=== PATIENT | female | born 1940 ===

== ENCOUNTER → 2019-12-17 14:23 | Outpatient (BNVA) | payer MEDICARE, SELFPAY | PROVIDERS: PCP Internal Medicine Geriatric Medicine; Visit Provider Surgery Vascular Surgery | DX: I83.12 Varicose veins of left lower extremity with inflammation (principal) | CPT/HCPCS: 99203 ==

== ENCOUNTER 2019-12-31 12:35 | Outpatient (REF) | payer MEDICARE, SELFPAY ==
--- NOTE | 2019-12-31 12:36 | US_ITS ---
EXAMINATION: RIGHT and LEFT LOWER EXTREMITY VENOUS ULTRASOUND (Reflux Exam) CLINICAL INDICATION: leg pain and varicose veins. COMPARISON: None. TECHNIQUE: Color flow triplex imaging and compression Doppler was performed to evaluate both the deep and the superficial systems bilaterally. To evaluate the superficial system, the examination was performed in the upright position. Color-flow Doppler ultrasound and compression ultrasound were utilized. In addition, maneuvers were utilized to demonstrate reflux. FINDINGS: 1. DEEP VENOUS ULTRASOUND OF THE RIGHT LOWER EXTREMITY: Respiratory variation, normal compression and augmented flow are noted in the right common femoral vein as well as the right popliteal vein and there is no evidence of deep venous thrombosis at these locations. There is no evidence of reflux in the deep system in either the common femoral vein or the popliteal vein. There is no evidence of a Burroughs's cyst. 2. SUPERFICIAL ULTRASOUND WITH DOPPLER OF RIGHT LOWER EXTREMITY: The right great saphenous vein at the saphenofemoral junction measures 12 mm, at the mid thigh 4 mm, wlcpf-yvc-uqto 4 mm, crnib-rem-zqal 4 mm, at mid calf 3 mm and at the ankle measures 3 mm. There is right greater saphenous vein measuring 0.4 seconds in the mid calf. The right small saphenous vein measures 2-3 mm and shows no reflux. 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 There are multiple small varicosities that measure less than 3 mm. 3. DEEP VENOUS ULTRASOUND OF THE LEFT LOWER EXTREMITY: Respiratory variation, normal compression and augmented flow are noted in the left common femoral vein as well as the left popliteal vein and there is no evidence of deep venous thrombosis at these locations. There is no evidence of reflux in the deep system in either the common femoral vein or the popliteal vein. . There is no evidence of a Burroughs's cyst. 4. SUPERFICIAL ULTRASOUND WITH DOPPLER OF LEFT LOWER EXTREMITY: Left great saphenous vein at the saphenofemoral junction measures 7 mm, at the mid thigh to mm, ndkdo-dnx-xtab 2 mm, xvkby-spp-kvln 3 mm, at mid calf 3 mm and at the ankle measures 4 mm. There is no reflux demonstrated in the left great saphenous vein. The left small saphenous vein measures 3-5 mm and shows no reflux. There are perforators in the proximal thigh and below the knee that measure 3 mm and do not demonstrate reflux. US/US venous duplex LE BI IMPRESSION: 1. No evidence of reflux or thrombus in the common femoral veins or popliteal veins bilaterally. 2. Right greater saphenous vein reflux measuring 0.4 seconds in the mid calf. No left greater saphenous vein reflux.
== END 2019-12-31 12:36 | disposition home or self-care (01) ==
LOC: HO.US 12:35
PROVIDERS: PCP Internal Medicine Geriatric Medicine; Visit Provider Surgery Vascular Surgery
DX: I83.12 Varicose veins of left lower extremity with inflammation (principal); I83.893 Varicose veins of bilateral lower extremities with other complications
CPT/HCPCS: 93970

== ENCOUNTER 2020-01-05 10:27 | Emergency (ER) | payer MEDICARE, SELFPAY ==
[2020-01-05 11:04] VITALS: BP 130/70; BP 140/82; PULSE 72; PULSE 82; RESP 16; TEMP 37.2; O2SAT 98; O2SAT 99; BMI 35.4
--- NOTE | 2020-01-05 11:04 | XR_ITS ---
EXAMINATION: XR BILATERAL HIPS WITH AP PELVIS CLINICAL INFORMATION: Pain COMPARISON: None TECHNIQUE: AP view of the pelvis and single views of each hip were obtained. FINDINGS: There is normal alignment without acute fracture or dislocation. There is bilateral hip joint space narrowing with associated hypertrophic changes. The sacroiliac joints and symphysis pubis are intact. Overlying soft tissues are intact. XR/XR hips MIHIR min 3V IMPRESSION: No acute bony abnormality of the pelvis and bilateral hips. Mild to moderate degenerative changes of both hips.
[2020-01-05] MEDS: oxyCODONE HCl Immed Release 5 MG TABLET PO (11:17)
[2020-01-05 11:52] LABS: Basophils Absolute Auto 0.1 X10*3/uL (0.0-0.2); Basophils Percent Auto 0.6 % (0-2); Eosinophils Absolute Auto 0.2 X10*3/uL (0.0-0.4); Eosinophils Percent Auto 1.8 % (0-4); Hematocrit 41.8 % (37-47); Hemoglobin 14.6 g/dl (12.0-16.0); Imm Gran Abs Auto 0.03 X10*3/uL (0.00-0.03); Imm Gran Pct Auto 0.3 % (0.0-0.4); Lymphocytes Absolute Auto 2.8 X10*3/uL (1.2-4.9); Lymphocytes Percent Auto 28.7 % (20-40); MANUAL DIFF FLAG NO; Mean Corpuscular HGB Conc 34.9 g/dl (31.0-35.0); Mean Corpuscular Hemoglobin 30.7 pg (27.0-33.0); Mean Corpuscular Volume 87.8 fL (80-98); Mean Platelet Volume 9.2 fL (9.4-12.3); Monocytes Absolute Auto 0.6 X10*3/uL (0.1-1.2); Monocytes Percent Auto 6.5 % (2-11); Neutrophils Absolute Auto 6.1 X10*3/uL (2.0-8.3); Neutrophils Percent Auto 62.1 % (45-73); Platelet Count 370 X10*3/uL (160-400); Red Blood Count 4.76 X10*6/uL (4.20-5.50); Red Cell Distribution Width 12.7 % (11.0-16.0); White Blood Count 9.9 X10*3/uL (4.8-10.8)
[2020-01-05 12:21] LABS: Anion Gap 15 (12-20); Blood Urea Nitrogen 16 mg/dL (9-16); Carbon Dioxide 22 mmol/L (22-29); Chloride 106 mmol/L (96-108); Creatinine Clr Calc Pharmacy 55.4; Estimated Glomerular Filt Rate > 60; Glucose Random 89 mg/dL (60-115); Potassium 4.2 mmol/l (3.3-5.1); Sodium 139 mmol/L (135-145)
--- NOTE | 2020-01-05 13:02 | ED.BACK ---
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 Patient lives home alone and at the point of unable to ambulate because the severe pain. Related Data Home Medications Medication Instructions Recorded Confirmed atorvastatin 40 mg tablet 40 mg PO DAILY 12/17/19 azithromycin 500 mg tablet See Rx Instructions PO .COMPLEX 12/17/19 diltiazem HCl 360 mg capsule,24 360 mg PO DAILY 12/17/19 hr,extended release famotidine 40 mg tablet 40 mg PO BID 12/17/19 fluticasone propionate 50 1 spray INTRANASAL DAILY 12/17/19 mcg/actuation nasal spray,suspension loratadine 10 mg capsule 10 mg PO DAILY 12/17/19 losartan 100 1 tab PO DAILY 12/17/19 mg-hydrochlorothiazide 25 mg tablet paroxetine HCl 10 mg tablet 10 mg PO DAILY 12/17/19 potassium chloride 20 mEq 20 meq PO DAILY 12/17/19 tablet,extended release roflumilast 250 mcg tablet 250 mcg PO DAILY 12/17/19 Previous Rx's Medication Instructions Recorded albuterol sulfate 90 mcg/actuation 2 puff INHALATION Q6H PRN #6.7 g 12/25/19 aerosol inhaler oxycodone 5 mg PO BID PRN #7 cap 01/05/20 Allergies Allergy/AdvReac Type Severity Reaction Status Date / Time lactose [LACTOSE] Allergy Mild DIARRHEA Unverified 11/07/19 17:33 amoxicillin [Augmentin] Allergy Unknown Verified 09/11/19 00:00 clavulanic acid [Augmentin] Allergy Unknown Verified 09/11/19 00:00 nitrofurantoin [Macrobid] Allergy Unknown Verified 09/11/19 00:00 pravastatin Allergy Unknown Verified 09/11/19 00:00 pollen Allergy Unknown Uncoded 09/11/19 00:00 Review of Systems Review of Systems: All other systems are reviewed and are negative Constitutional: Reports as per HPI and Reports no additional constitutional complaints Eyes: Reports as per HPI and Reports no additional eye complaints Reports system reviewed and no additional complaints, except as documented Cardiovascular: Reports as per HPI and Reports no additional cardiovascular complaints Respiratory: Reports as per HPI and Reports no additional respiratory complaints Gastrointestinal: Reports as per HPI and Reports no additional gastrointestinal complaints Genitourinary: Reports no additional female genitourinary complaints Musculoskeletal: Reports no additional musculoskeletal complaints Skin/Breast: Reports system reviewed and no additional complaints, except as docu Psychiatric: Reports no additional psychiatric complaints Endocrine: Reports no additional endocrine complaints Hematologic/Lymphatic: Reports no additional hematologic/lymphatic complaints Allergic/Immunologic: Reports no additional allergic/immunologic complaints Reports system reviewed and no additional complaints, except as documented and Reports Abnormal speech present [facility] Past Medical History Medical History Chronic obstructive pulmonary disease Renal artery atherosclerosis Venous insufficiency Social History Social History Smoking Status: Never smoker Advance Directives: No Advance Directives Information Provided: No Physical Exam Vital Signs: Vital Signs: Last Vital Signs Temp 99.0 F 01/05/20 11:04 Pulse 82 01/05/20 11:04 Resp 16 01/05/20 11:04 BP 130/70 01/05/20 11:04 Pulse Ox 99 01/05/20 11:04 Body Mass Index 35.4 Vital signs have been reviewed as normal and appeared to be correct. Blood pressure normal. Heart rate normal. Respiration rate normal. Temperature normal. Oxygen saturation normal. Appearance: Alert. Oriented X3. No acute distress. Head: Normal external exam. Normocephalic. Atraumatic. No Doran signs noted. No raccoon eyes noted Eyes: PERRLA. EOMI. Conjunctiva and sclera normal. Eyelids normal. ENT: EAC normal. TM's Normal. Pharynx normal. Uvula midline. Moist mucous membranes. No trismus noted. No drooling noted. No muffled voice noted. Neck: Normal inspection. Neck supple. FROM. No adenopathy. Thyroid Normal. No meningeal signs. No neck mass noted. CVS: Normal heart rate and rhythm. Heart sound normal. No murmurs noted. Pulses normal throughout. Respiratory: No respiratory distress. Painless inspiration. Breath sounds normal. No wheezes/rales/rhonchi noted. Chest nontender. No accessory muscle usage noted or decreased air movement noted. Abdomen: Soft and nontender. Bowel sounds normal in all 4 quadrants. No distention noted. No organomegaly noted. No visible injury noted. Back: No CVA tenderness. Full range of motion noted. Skin: Skin warm and dry. Normal skin color. Normal skin turgor. No rashes/lesions/lacerations noted. Extremities: No lower extremity edema. Extremities exhibit normal range of motion. Extremities nontender. Neuro: Oriented X 3. No motor deficit. No sensory deficit. Reflexes normal. Course Course Course Narrative: This is an 79-year-old female with acute on chronic low back pain, patient presented with severe low back pain, no other neurological deficit, clinical exam is not suggestive for abdominal aneurysm (patient had a CT 1-year-old showed no aneurysmal dilatation of the abdominal aorta), will check labs and plain x-rays, control patient's pain with oxycodone, reassess. MDM - Back Pain/Injury MDM Narrative Medical decision making narrative: Assessment and plan. 79-year-old female presented with acute on chronic low back pain, unremarkable x-ray and blood workup, patient did very well with the 1 gaxiola of 5 mg of oxycodone was able to ambulate with no assistance. Will discharge the patient with few pills of oxycodone for pain control at home and follow-up with PCP. Lab Data Result diagrams: 01/05/20 11:47 01/05/20 11:47 Labs: Lab Results 01/05/20 01/05/20 Range/Units 11:47 11:47 WBC 9.9 (4.8-10.8) X10*3/uL RBC 4.76 (4.20-5.50) X10*6/uL Hgb 14.6 (12.0-16.0) g/dl Hct 41.8 (37-47) % MCV 87.8 (80-98) fL MCH 30.7 (27.0-33.0) pg MCHC 34.9 (31.0-35.0) g/dl RDW 12.7 (11.0-16.0) % Plt Count 370 (160-400) X10*3/uL MPV 9.2 L (9.4-12.3) fL Immature Gran % (Auto) 0.3 (0.0-0.4) % Neut % (Auto) 62.1 (45-73) % Lymph % (Auto) 28.7 (20-40) % Quay % (Auto) 6.5 (2-11) % Eos % (Auto) 1.8 (0-4) % Baso % (Auto) 0.6 (0-2) % Lymph # (Auto) 2.8 (1.2-4.9) X10*3/uL Quay # (Auto) 0.6 (0.1-1.2) X10*3/uL Eos # (Auto) 0.2 (0.0-0.4) X10*3/uL Baso # (Auto) 0.1 (0.0-0.2) X10*3/uL Abs Immat Gran (auto) 0.03 (0.00-0.03) X10*3/uL Absolute Neuts (auto) 6.1 (2.0-8.3) X10*3/uL Absolute Nucleated RBC 0.000 (0.0-0.012) X10*3/uL Nucleated RBC % (auto) 0.0 (0.0-0.2) /100WBC Sodium 139 (135-145) mmol/L Potassium 4.2 (3.3-5.1) mmol/l Chloride 106 (96-108) mmol/L Carbon Dioxide 22 (22-29) mmol/L Anion Gap 15 (12-20) BUN 16 (9-16) mg/dL Creatinine 0.82 (0.5-1.4) mg/dL Estim Creat Clear Calc 55.4 Estimated GFR > 60 Random Glucose 89 (60-115) mg/dL Calcium 9.0 (8.4-10.2) mg/dL Imaging Data Pelvis and bilateral hips x-ray: Radiologist's impression: No acute bony abnormality of the pelvis and bilateral hips. Mild to moderate degenerative changes of both hips. Discharge Plan Discharge Clinical Impression: Lumbar radiculopathy Sciatica Qualifiers: Laterality: bilateral Qualified Code(s): M54.31 - Sciatica, right side Patient Disposition: Home, Self-Care Instructions: Lumbar Radiculopathy (ED) Prescriptions: New oxycodone 5 mg capsule 5 mg PO BID PRN (Reason: pain, severe) Qty: 7 RF: 0 No Action albuterol sulfate [Ventolin HFA] 90 mcg/actuation HFA aerosol inhaler 2 puff inhalation Q6H PRN (Reason: shortness of breath or wheezing) Qty: 6.7 RF: 3
== END 2020-01-05 13:57 | disposition home or self-care (01) ==
PROVIDERS: Emergency Provider Emergency Medicine; PCP Internal Medicine Geriatric Medicine
DX: M54.16 Radiculopathy, lumbar region (principal); M54.42 Lumbago with sciatica, left side; M54.41 Lumbago with sciatica, right side; M25.552 Pain in left hip; M25.551 Pain in right hip; Z79.899 Other long term (current) drug therapy
CPT/HCPCS: 36415; 73522; 80048; 85025; 99283; 99284

== ENCOUNTER → 2020-02-18 15:23 | Outpatient (BNVA) | payer MEDICARE, SELFPAY | PROVIDERS: PCP Internal Medicine Geriatric Medicine; Referring Provider Internal Medicine Geriatric Medicine; Visit Provider Surgery Vascular Surgery | DX: I83.12 Varicose veins of left lower extremity with inflammation (principal) | CPT/HCPCS: 99212 ==

== ENCOUNTER → 2020-02-27 12:32 | Outpatient (BNVA) | payer MEDICARE, SELFPAY | PROVIDERS: PCP Internal Medicine Geriatric Medicine; Referring Provider Internal Medicine Geriatric Medicine; Visit Provider Hospitalist | DX: J47.9 Bronchiectasis, uncomplicated (principal); J30.9 Allergic rhinitis, unspecified; J44.9 Chronic obstructive pulmonary disease, unspecified | CPT/HCPCS: 99212 ==

== ENCOUNTER 2020-03-10 11:41 | Outpatient (REF) | payer MEDICARE, SELFPAY | END 2020-03-10 11:42 | disposition home or self-care (01) | LOC: HO.LAB 11:41 | PROVIDERS: Visit Provider Internal Medicine | DX: Z20.822 Contact with and (suspected) exposure to COVID-19 (principal) | CPT/HCPCS: 36415; C9803; U0003 ==

== ENCOUNTER → 2020-06-18 12:53 | Outpatient (BNVA) | payer MEDICARE, SELFPAY | PROVIDERS: PCP Internal Medicine Geriatric Medicine; Visit Provider Hospitalist | DX: J30.9 Allergic rhinitis, unspecified (principal); J44.9 Chronic obstructive pulmonary disease, unspecified; J47.9 Bronchiectasis, uncomplicated; J45.40 Moderate persistent asthma, uncomplicated | CPT/HCPCS: 99212 ==

== ENCOUNTER 2020-06-29 14:46 | Outpatient (REF) | payer MEDICARE, SELFPAY ==
[2020-06-29 15:42] LABS: Anion Gap 16 (12-20); Blood Urea Nitrogen 8 mg/dL (9-16); Carbon Dioxide 23 mmol/L (22-29); Chloride 107 mmol/L (96-108); Estimated Glomerular Filt Rate > 60; Glucose Random 97 mg/dL (60-115); Potassium 3.8 mmol/L (3.3-5.1); Sodium 142 mmol/L (135-145)
[2020-06-29 15:48] LABS: Basophils Absolute Auto 0.1 X10*3/uL (0.0-0.2); Basophils Percent Auto 0.5 % (0-2); Eosinophils Absolute Auto 0.6 X10*3/uL (0.0-0.4); Eosinophils Percent Auto 5.3 % (0-4); Hematocrit 39.4 % (37-47); Hemoglobin 13.6 g/dl (12.0-16.0); Imm Gran Abs Auto 0.03 X10*3/uL (0.00-0.03); Imm Gran Pct Auto 0.3 % (0.0-0.4); Lymphocytes Absolute Auto 4.4 X10*3/uL (1.2-4.9); Lymphocytes Percent Auto 37.5 % (20-40); MANUAL DIFF FLAG SCAN; Mean Corpuscular HGB Conc 34.5 g/dl (31.0-35.0); Mean Corpuscular Hemoglobin 30.1 pg (27.0-33.0); Mean Corpuscular Volume 87.2 fL (80-98); Monocytes Absolute Auto 0.6 X10*3/uL (0.1-1.2); Neutrophils Percent Auto 51.4 % (45-73); PLT CLUMP 1; Red Blood Count 4.52 X10*6/uL (4.20-5.50); Red Cell Distribution Width 13.4 % (11.0-16.0); SCAN SMEAR FLAG 1; White Blood Count 11.7 X10*3/uL (4.8-10.8)
[2020-06-29 15:51] LABS: B Type Natriuretic Peptide 49 pg/mL (<100)
[2020-06-29 16:09] LABS: Platelet Count 263 X10*3/uL (160-400)
[2020-06-29 16:10] LABS: SLIDE REVIEW VERIFIED
[2020-06-29 16:37] LABS: Erythrocyte Sedimentation Rate 25 MM/HR (0-20)
[2020-06-30 08:24] LABS: SARS COV2 IgG Negative (Negative)
== END 2020-06-29 14:47 | disposition home or self-care (01) ==
LOC: HO.RESP 14:46
PROVIDERS: PCP Internal Medicine Geriatric Medicine; Visit Provider Hospitalist
DX: J45.901 Unspecified asthma with (acute) exacerbation (principal)
CPT/HCPCS: 36415; 80048; 83880; 85025; 85652; 86769; 96372; 99212; J2930

== ENCOUNTER 2020-10-14 09:08 | Emergency (ER) | payer MEDICARE, SELFPAY ==
--- NOTE | ~2020-10-14 | XR_ITS ---
EXAMINATION: LUMBAR SPINE AND SACRUM/COCCYX X-RAYS CLINICAL INFORMATION: Pain post fall COMPARISON: CT of the lumbar spine September 2017 TECHNIQUE: 3 views of the lumbar spine and 3 views of the sacrum and coccyx FINDINGS: Lumbar spine: There is curvature of the lumbar spine to the right. Bone alignment is otherwise normal. There is degenerative disc disease and spondylosis at L1-L2 3 and L3-L4. There is lower lumbar spine facet arthritis. There is evidence of atherosclerotic disease. Sacrum and coccyx: There is a lucency in the right S2 vertebral body questionable for a fracture. No other fracture or dislocation is seen. There are degenerative changes at the sacroiliac joints and hip joints. XR/XR sacrum coccyx min 2V IMPRESSION: Lumbar spine: No fracture or dislocation. Scoliosis and degenerative changes. Sacrum and coccyx: Question fracture of the right S2 vertebral body.
--- NOTE | ~2020-10-14 | XR_ITS ---
EXAMINATION: LUMBAR SPINE AND SACRUM/COCCYX X-RAYS CLINICAL INFORMATION: Pain post fall COMPARISON: CT of the lumbar spine September 2017 TECHNIQUE: 3 views of the lumbar spine and 3 views of the sacrum and coccyx FINDINGS: Lumbar spine: There is curvature of the lumbar spine to the right. Bone alignment is otherwise normal. There is degenerative disc disease and spondylosis at L1-L2 3 and L3-L4. There is lower lumbar spine facet arthritis. There is evidence of atherosclerotic disease. Sacrum and coccyx: There is a lucency in the right S2 vertebral body questionable for a fracture. No other fracture or dislocation is seen. There are degenerative changes at the sacroiliac joints and hip joints. XR/XR lumbar spine 2-3V IMPRESSION: Lumbar spine: No fracture or dislocation. Scoliosis and degenerative changes. Sacrum and coccyx: Question fracture of the right S2 vertebral body.
[2020-10-14 09:06] VITALS: BP 170/72
[2020-10-14 09:09] VITALS: BP 172/85; PULSE 85; RESP 18; TEMP 36.9; O2SAT 94
[2020-10-14 09:12] VITALS: BP 172/85; PULSE 89; RESP 18; TEMP 37.2; O2SAT 98; BMI 37.4
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
[2020-10-14] MEDS: oxyCODONE HCl Immed Release 5 MG TABLET PO ×2 (09:30→11:20)
[2020-10-14 11:22] VITALS: BP 174/72; PULSE 82; RESP 16; O2SAT 98
[2020-10-14] MEDS: Ondansetron ODT 4 MG TAB.RAPDIS TRANSLINGU ×2 (11:55→12:46)
== END 2020-10-14 12:47 | disposition home or self-care (01) ==
PROVIDERS: Emergency Provider Emergency Medicine
DX: S32.10XA Unspecified fracture of sacrum, initial encounter for closed fracture (principal); M54.5 Low back pain; W01.0XXA Fall on same level from slipping, tripping and stumbling without subsequent striking against object, initial encounter; Y93.9 Activity, unspecified; Y92.9 Unspecified place or not applicable; Y99.9 Unspecified external cause status; Z79.899 Other long term (current) drug therapy
CPT/HCPCS: 72100; 72220; 99283; 99284

== ENCOUNTER → 2020-11-19 12:58 | Outpatient (BNVA) | payer MEDICARE, SELFPAY | PROVIDERS: PCP Internal Medicine Geriatric Medicine; Visit Provider Hospitalist | DX: J44.9 Chronic obstructive pulmonary disease, unspecified (principal); J30.9 Allergic rhinitis, unspecified; J47.9 Bronchiectasis, uncomplicated | CPT/HCPCS: 99212 ==

== ENCOUNTER 2021-04-13 13:49 | Outpatient (REF) | payer MEDICARE, SELFPAY ==
--- NOTE | ~2021-04-13 | XR_ITS ---
EXAMINATION: XR CHEST CLINICAL INFORMATION: R07.9 - Chest pain, unspecified COMPARISON: Chest radiographs 12/09/2018, 11/05/2018 CTA chest 12/09/2018 TECHNIQUE: 2 views of the chest were obtained. FINDINGS: There is trace subsegmental atelectasis left lateral base. Old linear scarring is again seen left lingular similar to prior studies. There is no pneumothorax, airspace consolidation, or effusion. The heart is normal in size. The vascularity is normal. The hilar and mediastinal contours and visualized bony structures are unremarkable. XR/XR chest 2V IMPRESSION: 1. Subsegmental atelectasis left lateral base. Fine linear scar left lingula. 2. No pneumothorax, vascular congestion, infiltrate, or effusion.
[2021-04-13 14:49] LABS: MANUAL DIFF FLAG NO
[2021-04-13 14:54] LABS: Basophils Absolute Auto 0.1 X10*3/uL (0.0-0.2); Basophils Percent Auto 0.7 % (0-2); Eosinophils Absolute Auto 0.4 X10*3/uL (0.0-0.4); Eosinophils Percent Auto 3.8 % (0-4); Hematocrit 39.8 % (37.0-47.0); Hemoglobin 13.8 g/dl (12.0-16.0); Imm Gran Abs Auto 0.05 X10*3/uL (0.00-0.03); Imm Gran Pct Auto 0.5 % (0.0-0.4); Lymphocytes Absolute Auto 3.2 X10*3/uL (1.2-4.9); Lymphocytes Percent Auto 32.6 % (20-40); Mean Corpuscular HGB Conc 34.7 g/dl (31.0-35.0); Mean Corpuscular Hemoglobin 30.9 pg (27.0-33.0); Mean Platelet Volume 8.9 fL (9.4-12.3); Monocytes Absolute Auto 0.7 X10*3/uL (0.1-1.2); Monocytes Percent Auto 6.9 % (2-11); Neutrophils Absolute Auto 5.3 x10*3/uL (2.0-8.3); Neutrophils Percent Auto 55.5 % (45-73); Platelet Count 360 X10*3/uL (160-400); Red Blood Count 4.47 X10*6/uL (4.20-5.50); Red Cell Distribution Width 12.9 % (11.0-16.0); White Blood Count 9.7 X10*3/uL (4.8-10.8)
[2021-04-13 15:04] LABS: D Dimer High Sensitivity < 150 NG/ML
[2021-04-13 15:17] LABS: Anion Gap 12 (12-20); Blood Urea Nitrogen 8 mg/dL (9-16); Calcium 9.3 mg/dL (8.4-10.2); Carbon Dioxide 25 mmol/L (22-29); Chloride 109 mmol/L (96-108); Estimated Glomerular Filt Rate > 60; Glucose Random 85 mg/dL (60-115); Potassium 4.1 mmol/L (3.3-5.1); Sodium 142 mmol/L (135-145)
[2021-04-13 15:23] LABS: Troponin-I High Sensitivity 11.7 ng/L (<3.5-17.0)
[2021-04-13 15:25] LABS: COVID-19 Test Negative (Negative)
[2021-04-13 15:35] LABS: Erythrocyte Sedimentation Rate 23 MM/HR (0-20)
== END 2021-04-13 13:50 | disposition home or self-care (01) ==
LOC: HO.XRAY 13:49
PROVIDERS: PCP Internal Medicine Geriatric Medicine; Visit Provider Hospitalist
DX: R07.9 Chest pain, unspecified (principal); J45.41 Moderate persistent asthma with (acute) exacerbation; J30.9 Allergic rhinitis, unspecified; J44.9 Chronic obstructive pulmonary disease, unspecified; Z20.822 Contact with and (suspected) exposure to COVID-19
CPT/HCPCS: 36415; 71046; 80048; 84484; 85025; 85379; 85652; 87635; 99212

== ENCOUNTER → 2021-06-14 14:16 | Outpatient (BNVA) | payer OTHER, SELFPAY | PROVIDERS: PCP Internal Medicine Geriatric Medicine; Visit Provider Hospitalist | DX: J47.9 Bronchiectasis, uncomplicated (principal); J30.9 Allergic rhinitis, unspecified | CPT/HCPCS: 99212 ==

== ENCOUNTER 2021-12-10 18:32 | Emergency (ER) | payer OTHER, SELFPAY ==
--- NOTE | ~2021-12-10 | CT_ITS ---
EXAMINATION: CT HEAD WITHOUT CONTRAST CLINICAL INFORMATION: Dizziness, hypertension, headache COMPARISON: None TECHNIQUE: Contiguous axial imaging was performed from the skull base to vertex without intravenous administration of contrast. This CT examination was performed using dose optimization techniques as appropriate, variously including the following: *Automated exposure control *Adjustment of mA and/or kV according to patient size (this includes techniques or standardized protocols for targeted exams where dose is matched to indication/reason for exam; i.e. extremities or head) *Use of iterative reconstruction technique DLP: 672 mGy-cm FINDINGS: No intra-axial or extra-axial hemorrhage. No acute territorial infarct. Ventricles and sulci appear normal. Preservation of sim-white matter differentiation. No mass, mass effect, or midline shift. No fracture. The mastoid air cells and visualized paranasal sinuses are clear. Hyperostosis frontalis interna. CT/CT head/brain wo IV con IMPRESSION: No acute intracranial pathology.
[2021-12-10 18:41] VITALS: BP 195/68; PULSE 91; RESP 18; TEMP 36.8; O2SAT 98; BMI 29.2
--- NOTE | 2021-12-10 18:44 | ECG_ITS ---
Test Reason : HYPERTENTION Blood Pressure : / mmHG Vent. Rate : 079 BPM Atrial Rate : 079 BPM P-R Int : 218 ms QRS Dur : 136 ms QT Int : 448 ms P-R-T Axes : 070 016 041 degrees QTc Int : 513 ms Sinus rhythm with 1st degree A-V block Right bundle branch block Abnormal ECG When compared with ECG of 09-DEC-2018 21:26, Nonspecific T wave abnormality has replaced inverted T waves in Anterior leads Referred By: Generic ED Physician Electronically Signed By:NEISHA CALLAHAN MD
--- NOTE | 2021-12-10 19:24 | ED_ITS ---
HPI - General Adult General Chief complaint: General Medical Stated complaint: high blood pressure, fever Time Seen by Provider: 12/10/21 19:24 Source: patient Mode of arrival: ambulatory Limitations: no limitations History of Present Illness HPI narrative: 81-year-old female with history of asthma presents to the emergency department complaining of hypertension, headaches, and dizziness for the last few days. P atient states she has been taking her blood pressure medication. Patient states she went to urgent care and her blood pressure was reading to 209/86. Patient reports at Urgent Care they gave her losartan 100 mg. Patient states she has been having headaches and dizziness which are presenting different than her typical headache. Patient states her eyes hurt however she is not experiencing blurry vision. Additionally patient is complaining of shortness of breath. Patient denies chest pain, fevers, chills, blurry vision, nausea, diarrhea. Patient states she does not have a history blood clots and is not on blood thinners. Related Data Home Medications Medication Instructions Recorded Confirmed diltiazem HCl 360 mg capsule,24 360 mg PO DAILY 12/17/19 06/30/20 hr,extended release (Taztia XT) albuterol sulfate 2.5 mg/3 mL mg inhalation Q6H PRN 02/27/20 06/30/20 (0.083 %) solution for nebulization celecoxib 200 mg capsule 200 mg PO DAILY PRN 02/27/20 06/30/20 pantoprazole 20 mg tablet,delayed 20 mg PO DAILY 06/18/20 06/30/20 release ferrous sulfate 325 mg (65 mg 0 mg PO 11/19/20 iron) tablet (FeroSul) nitroglycerin 0.4 % (w/w) rectal SD BEDTIME 06/14/21 ointment (Rectiv) Previous Rx's Medication Instructions Recorded ibuprofen 600 mg tablet 600 mg PO TID PRN pain #14 tabs 10/14/20 albuterol sulfate 2.5 mg/3 mL 2.5 mg (3 mL) inhalation Q4H PRN 03/15/21 (0.083 %) solution for nebulization for wheezing #75 mL albuterol sulfate 90 mcg/actuation 2 puff PO QID PRN for wheezing #18 03/15/21 aerosol inhaler (Ventolin HFA) grams Breo Ellipta 200 mcg-25 mcg/dose 1 ea PO DAILY #60 ea 05/09/22 powder for inhalation (fluticasone furoate-vilanterol) Daliresp 250 mcg tablet 250 mcg PO QPM #28 tabs 06/28/21 (roflumilast) azithromycin 500 mg tablet 500 mg PO 3XW #12 tabs 07/26/21 trazodone 50 mg tablet 50 mg PO BEDTIME #30 tabs 09/22/21 prednisone 20 mg tablet See Rx Instructions PO DAILY 10 11/16/21 days #15 tabs amlodipine 2.5 mg tablet 2.5 mg PO DAILY #30 tabs 12/11/21 Allergies Allergy/AdvReac Type Severity Reaction Status Date / Time amoxicillin [Augmentin] Allergy Severe Rash and Verified 06/14/21 14:42 Hives atorvastatin Allergy Severe Tachycardia Verified 06/14/21 14:42 clavulanic acid [Augmentin] Allergy Severe Rash and Verified 06/14/21 14:42 Hives nitrofurantoin [Macrobid] Allergy Severe Rash and Verified 06/14/21 14:42 Hives pravastatin Allergy Severe Rash and Verified 06/14/21 14:42 Hives lactose [LACTOSE] Allergy Mild DIARRHEA Unverified 06/14/21 14:42 pollen Allergy Mild Rash Uncoded 06/14/21 14:42 Review of Systems Review of Systems: Constitutional : No Weight loss, No Fever, No Chills, No Fatigue, No Malaise ENT/Mouth : No sore throat, No Rhinorrhea Eyes: + Eye Pain, No Swelling, No Redness Cardiovascular : No Chest Pain, + SOB, No Dyspnea on Exertion, No Orthopnea, No Edema, No Palpitations Respiratory : No Cough, No Sputum, No Wheezing Gastrointestinal : No Nausea, No Vomiting, No Diarrhea, No Constipation, No abdominal Pain, No Hematochezia, No Melena Genitourinary : No Dysuria, No Urinary Frequency, No Hematuria, Musculoskeletal : No joint pain, No Myalgias, No Joint Swelling Skin : No Skin Lesions, No rash Neuro : No Weakness, No Numbness, + Dizziness, + Headache Psych : No Anxiety/Panic, No Depression All other systems reviewed and are negative Yes all other systems are reviewed and are negative PMFSH Past Medical History Attestation statement: The following information was validated with the patient. Source: old records reviewed and nursing notes reviewed Medical History Asthma Asthma-COPD overlap syndrome Bronchiectasis Chronic allergic rhinitis Chronic obstructive pulmonary disease Renal artery atherosclerosis Venous insufficiency Social History Social History Alcohol intake: never Patient Tobacco Use Status: Never used Tobacco Advance Directives: No Advance Directives Information Provided: No Physical Exam ED Vital Signs: Vital Signs - 24 hr 12/10/21 18:41 12/10/21 21:27 12/10/21 22:30 Temperature 98.3 F Pulse Rate 91 94 88 Respiratory Rate 18 26 H 25 H Blood Pressure 195/68 H 208/74 H 178/56 H Pulse Oximetry 98 98 97 Oxygen Delivery Method Room Air Room Air Room Air 12/10/21 23:33 12/11/21 00:30 Temperature 98.5 F 98.1 F Pulse Rate 81 77 Respiratory Rate 24 H 22 H Blood Pressure 173/61 H 162/61 H Pulse Oximetry 97 96 Oxygen Delivery Method Room Air Room Air BMI result Body Mass Index 29.2 vss Appearance: Alert.? Oriented X3.? No acute distress.? Head: Normocephalic, atraumatic, no step-offs or deformities Eyes: Pupils equal, round and reactive to light.? ENT: Pharynx normal.??External ears normal, TMs normal bilaterally and EAC's normal. No pain with manipulation of external ears bilaterally. No mastoid tenderness. Neck: Normal inspection.? Neck supple.? CVS: Normal heart rate and rhythm.? Pulses normal.? Respiratory: No respiratory distress.? Breath sounds normal.? Abdomen: Soft and nontender.? Skin: Skin warm and dry.? Normal skin color.? Normal skin turgor.? Extremities: No lower extremity edema.? No calf ttp. 5/5 strength to bilateral upper and lower extremities. Normal hand tile classifier b/l Neuro: Oriented X 3.? No motor deficit.? No sensory deficit. CN 2-12 intact. Ambulating w/ steady gait and normal coordination. Normal finger to nose, heel to funez. Negative pronator drift and romberg NIHSS-0 Course Reevaluation(s) Reevaluation #1: Slight leukocytosis noted , chemistry with no acute electrolyte abnormalities requiring intervention, elevated CRP, ESR within normal limits. Initial troponin 6.7, EKG nonischemic unlikely ACS however will repeat troponin at 11. COVID negative. Even after patient's at-home medication blood pressure remains elevated, will add an additional agent at this time. Head CT with no acute findings, no signs of intracranial hemorrhage, unlikely stroke. Although patient's CRP is elevated I do not suspect temporal arteritis or giant cell arteritis on this patient, no scalp tenderness or pain to palpation overlying temporal arteries, no vision changes. Time: 21:54 Reevaluation #2: Upon re-evaluation patient tells me she is no longer having a headache, dizziness or any discomfort. She tells me she feels good. Pressure still elevated. Will continue to monitor Time: 22:06 Reevaluation #3: Patient's troponin did increase however I did run this case by Cardiology Dr. Swann who tells me EKG and trop ok, he recommends discharging patient home with amlodipine at 2.5 mg daily. Patient appears well, asymptomatic, at this time patient will be discharged home. Patient's blood pressure improved to 173/61, continues to be symptom-free. I did have a long conversation with patient about med compliance in taking her blood pressure medications every day. I advised her to check her blood pressures Monday, Monday, Monday, and follow-up with her primary care provider and discuss these findings. Educated her on worrisome signs and symptoms in outlined them on her discharge. Daughter at bedside will also verbalizes understanding. At this time patient will be discharged home will give her follow-up to Neurology. Comfortable discharge home. At time of discharge patient was able to ambulate out of the department without difficulties. Time: 23:58 Medical Decision Making [facility] Narrative Medical decision making narrative: 1930 81 year old female presents w/ hypertension, headache, dizziness, X2 days. Although patient reported fevers to triage she denies fevers to this PA-C. PE benign. Neuro nonfocal, cerebellar intact, RRR, lungs clear, abd soft non- tender non-distended. VSS. NIHSS- 0 Low suspicion for ICH, stroke, posterior stroke, encephalitis, meningitis. Likley complex migrane. Plan- labs, imaging, urine, ekg, trop Medical Records Medical records reviewed: Yes I reviewed the patient's medical records. Lab Data Lab results reviewed: Yes I reviewed the patient's lab results. Result diagrams: 12/10/21 20:09 12/10/21 20:09 Labs: Lab Results 12/10/21 12/10/21 12/10/21 Range/Units 20:09 20:09 20:09 WBC 11.7 H (4.8-10.8) X10*3/uL RBC 5.15 (4.20-5.50) X10*6/uL Hgb 15.2 (12.0-16.0) g/dl Hct 44.6 (37.0-47.0) % MCV 86.6 (80.0-98.0) fL MCH 29.5 (27.0-33.0) pg MCHC 34.1 (31.0-35.0) g/dl RDW 13.1 (11.0-16.0) % Plt Count 427 H (160-400) X10*3/uL MPV 9.0 L (9.4-12.3) fL Immature Gran % (Auto) 0.3 (0.0-0.4) % Neut % (Auto) 61.8 (45-73) % Lymph % (Auto) 27.4 (20-40) % Posey % (Auto) 6.1 (2-11) % Eos % (Auto) 3.9 (0-4) % Baso % (Auto) 0.5 (0-2) % Lymph # (Auto) 3.2 (1.2-4.9) X10*3/uL Posey # (Auto) 0.7 (0.1-1.2) X10*3/uL Eos # (Auto) 0.5 H (0.0-0.4) X10*3/uL Baso # (Auto) 0.1 (0.0-0.2) X10*3/uL Abs Immat Gran (auto) 0.03 (0.00-0.03) X10*3/uL Absolute Neuts (auto) 7.3 (2.0-8.3) x10*3/uL Absolute Nucleated RBC 0.000 (0.0-0.012) X10*3/uL Nucleated RBC % (auto) 0.0 (0.0-0.2) /100WBC ESR (0-20) MM/HR PT (10.0-13.1) SEC INR (0.9-1.1) Sodium 143 (135-145) mmol/L Potassium 4.1 (3.3-5.1) mmol/L Chloride 107 (96-108) mmol/L Carbon Dioxide 24 (22-29) mmol/L Anion Gap 16 (12-20) BUN 11 (9-16) mg/dL Creatinine 0.77 (0.5-1.4) mg/dL Estim Creat Clear Calc 51.6 Estimated GFR > 60 Random Glucose 95 (60-115) mg/dL Calcium 9.5 (8.4-10.2) mg/dL Total Bilirubin 0.6 (0.0-1.0) mg/dL Direct Bilirubin 0.2 (0.0-0.5) mg/dL AST 16 (5-31) U/L ALT 12 (0-31) U/L Alkaline Phosphatase 128 H (39-117) U/L Troponin I High Sens 6.7 (<3.5-17.0) ng/L C-Reactive Protein (< or = 0.50) mg/dL Total Protein 7.4 (6.5-8.0) g/dL Albumin 4.6 (3.5-5.0) g/dL Lipase 13 (8-78) U/L Urine Color Urine Appearance Urine pH (5.0-9.0) Ur Specific [place] (1.005-1.025) Urine Protein (Neg-Trace) mg/dL Urine Glucose (UA) (Negative) mg/dL Urine Ketones (Negative) mg/dL Urine Blood (Negative) Urine Nitrite (Negative) Ur Leukocyte Esterase (Negative) COVID-19 (SIN) (Negative) COVID-19 Clin Com 12/10/21 12/10/21 12/10/21 Range/Units 20:09 20:09 20:09 WBC (4.8-10.8) X10*3/uL RBC (4.20-5.50) X10*6/uL Hgb (12.0-16.0) g/dl Hct (37.0-47.0) % MCV (80.0-98.0) fL MCH (27.0-33.0) pg MCHC (31.0-35.0) g/dl RDW (11.0-16.0) % Plt Count (160-400) X10*3/uL MPV (9.4-12.3) fL Immature Gran % (Auto) (0.0-0.4) % Neut % (Auto) (45-73) % Lymph % (Auto) (20-40) % Posey % (Auto) (2-11) % Eos % (Auto) (0-4) % Baso % (Auto) (0-2) % Lymph # (Auto) (1.2-4.9) X10*3/uL [place]osey # (Auto) (0.1-1.2) X10*3/uL Eos # (Auto) (0.0-0.4) X10*3/uL Baso # (Auto) (0.0-0.2) X10*3/uL Abs Immat Gran (auto) (0.00-0.03) X10*3/uL Absolute Neuts (auto) (2.0-8.3) x10*3/uL Absolute Nucleated RBC (0.0-0.012) X10*3/uL Nucleated RBC % (auto) (0.0-0.2) /100WBC ESR 18 (0-20) MM/HR PT 12.4 (10.0-13.1) SEC INR 1.1 (0.9-1.1) Sodium (135-145) mmol/L Potassium (3.3-5.1) mmol/L Chloride (96-108) mmol/L Carbon Dioxide (22-29) mmol/L Anion Gap (12-20) BUN (9-16) mg/dL Creatinine (0.5-1.4) mg/dL Estim Creat Clear Calc Estimated GFR Random Glucose (60-115) mg/dL Calcium (8.4-10.2) mg/dL Total Bilirubin (0.0-1.0) mg/dL Direct Bilirubin (0.0-0.5) mg/dL AST (5-31) U/L ALT (0-31) U/L Alkaline Phosphatase (39-117) U/L Troponin I High Sens (<3.5-17.0) ng/L C-Reactive Protein (< or = 0.50) mg/dL Total Protein (6.5-8.0) g/dL Albumin (3.5-5.0) g/dL Lipase (8-78) U/L Urine Color Urine Appearance Urine pH (5.0-9.0) Ur Specific [place] (1.005-1.025) Urine Protein (Neg-Trace) mg/dL Urine Glucose (UA) (Negative) mg/dL Urine Ketones (Negative) mg/dL Urine Blood (Negative) Urine Nitrite (Negative) Ur Leukocyte Esterase (Negative) COVID-19 (SIN) Negative (Negative) COVID-19 Clin Com See Note 12/10/21 12/10/21 12/10/21 Range/Units 20:09 21:39 23:32 WBC (4.8-10.8) X10*3/uL RBC (4.20-5.50) X10*6/uL Hgb (12.0-16.0) g/dl Hct (37.0-47.0) % MCV (80.0-98.0) fL MCH (27.0-33.0) pg MCHC (31.0-35.0) g/dl RDW (11.0-16.0) % Plt Count (160-400) X10*3/uL MPV (9.4-12.3) fL Immature Gran % (Auto) (0.0-0.4) % Neut % (Auto) (45-73) % Lymph % (Auto) (20-40) % Posey % (Auto) (2-11) % Eos % (Auto) (0-4) % Baso % (Auto) (0-2) % Lymph # (Auto) (1.2-4.9) X10*3/uL [place]y # (Auto) (0.1-1.2) X10*3/uL Eos # (Auto) (0.0-0.4) X10*3/uL Baso # (Auto) (0.0-0.2) X10*3/uL Abs Immat Gran (auto) (0.00-0.03) X10*3/uL Absolute Neuts (auto) (2.0-8.3) x10*3/uL Absolute Nucleated RBC (0.0-0.012) X10*3/uL Nucleated RBC % (auto) (0.0-0.2) /100WBC ESR (0-20) MM/HR PT (10.0-13.1) SEC INR (0.9-1.1) Sodium (135-145) mmol/L Potassium (3.3-5.1) mmol/L Chloride (96-108) mmol/L Carbon Dioxide (22-29) mmol/L Anion Gap (12-20) BUN (9-16) mg/dL Creatinine (0.5-1.4) mg/dL Estim Creat Clear Calc Estimated GFR Random Glucose (60-115) mg/dL Calcium (8.4-10.2) mg/dL Total Bilirubin (0.0-1.0) mg/dL Direct Bilirubin (0.0-0.5) mg/dL AST (5-31) U/L ALT (0-31) U/L Alkaline Phosphatase (39-117) U/L Troponin I High Sens 10.4 D (<3.5-17.0) ng/L C-Reactive Protein 1.73 H (< or = 0.50) mg/dL Total Protein (6.5-8.0) g/dL Albumin (3.5-5.0) g/dL Lipase (8-78) U/L Urine Color Yellow Urine Appearance Clear Urine pH 7.5 (5.0-9.0) Ur Specific [place] <= 1.005 (1.005-1.025) Urine Protein Negative (Neg-Trace) mg/dL Urine Glucose (UA) Negative (Negative) mg/dL Urine Ketones Negative (Negative) mg/dL Urine Blood Negative (Negative) Urine Nitrite Negative (Negative) Ur Leukocyte Esterase Negative (Negative) COVID-19 (SIN) (Negative) COVID-19 Clin Com ECG Data Attestation: I personally reviewed and interpreted this ECG as follows: Prior ECG tracings: available for review Interpretation: Ventricular rate of 79, SD normal, QRS normal, QT/QTC normal. EKG with sinus rhythm with first-degree AV block. Also noted to have a right bundle-branch block. When compared to EKG from November 2018 no significant changes. Critical Care Time Critical Care Time Critical Care Time: Yes Total Critical Care Time: 35 Attestation: I attest to this time spent taking care of the patient, obtaining history, physical, reviewing labs, imaging, speaking to my attending, speaking to specialist. Discharge Plan Discharge Clinical Impression: Headache, Dizziness, Hypertension, First degree AV block Patient Disposition: Home, Self-Care Instructions: Acute Headache (ED), Hypertension (ED), Dizziness (ED), Hypertension in the Older Adult (ED) Additional Instructions: Take your medications as prescribed. If you were prescribed antibiotics today, it is important that you take your medication to their entirety, do not skip any doses, do not finish them early. Follow-up with your primary care provider this week. Please follow-up with neurology if headache continues. Please also follow-up with cardiology. Please check your blood pressure Monday, Monday, Monday, write it down and sure these numbers with your primary care provider. Continue to take your prescribed blood pressure medications every day. Return to the emergency department with new or worsening symptoms. Such as fevers, chills, chest pain, shortness of breath, nausea, vomiting, dizziness, headache, vision changes, lethargy In case of emergency call 911 Your laboratory studies here in the emergency department were reassuring. Your head CT scan showed no acute findings. Your cardiac enzymes were also reassuring [place] tootie medicamentos seg?n lo prescrito. Si le recetaron antibi?ticos hoy, es importante que tome nguyen medicamento en nguyen totalidad, no se salte ninguna dosis, no los termine antes de tiempo. Seguimiento con nguyen proveedor de atenci?n primaria esta semana. Por favor, juan un seguimiento con neurolog?a si te da dolor de manolo o emperoa. Juan seguimento con cardiologia. Por favor controle nguyen presi?n arterial los lunes, mi?rcoles y viernes, an?telo y aseg?rese de estos n?meros con nguyen proveedor de atenci?n primaria. Contin?e tomando los medicamentos recetados para la presi?n arterial todos los d?as. Regrese al departamento de emergencias con s?ntomas nuevos o que empeoran. Shelbie fiebre, escalofr?os, dolor de pecho, dificultad para respirar, n?useas, v?mitos, mareos, dolor de manolo, cambios en la visi?n, letargo En iris de emergencia llama al 911 T[place]ie estudios de laboratorio aqu? en el departamento de emergencias fueron t ranquilizadores. Nguyen tomograf?a computarizada de la manolo no mostr? hallazgos agudos. Tus enzimas card?acas tambi?n fueron tranquilizadoras. Prescriptions: New amlodipine 2.5 mg tablet 2.5 mg PO DAILY Qty: 30 1RF No Action albuterol sulfate 2.5 mg /3 mL (0.083 %) solution for nebulization 2.5 mg inhalation Q4H PRN (Reason: for wheezing) Qty: 75 11RF albuterol sulfate [Ventolin HFA] 90 mcg/actuation HFA aerosol inhaler 2 puff PO QID PRN (Reason: for wheezing) Qty: 18 11RF Daliresp 250 mcg tablet 250 mcg PO QPM Qty: 28 8RF Breo Ellipta 200-25 mcg/dose blister with device 1 ea PO DAILY Qty: 60 11RF azithromycin 500 mg tablet 500 mg PO 3XW Qty: 12 5RF trazodone 50 mg tablet 50 mg PO BEDTIME Qty: 30 3RF prednisone 20 mg tablet See Rx Instructions PO DAILY 10 Days Qty: 15 0RF Rx Instructions: PO daily; Take 2 tabs daily x 5 days, then 1 tablet daily x 5 days ibuprofen 600 mg tablet 600 mg PO TID PRN (Reason: pain) Qty: 14 0RF albuterol sulfate 2.5 mg /3 mL (0.083 %) solution for nebulization inhalation Q6H PRN celecoxib 200 mg capsule 200 mg PO DAILY PRN diltiazem HCl [Taztia XT] 360 mg capsule,extended release 24 hr 360 mg PO DAILY pantoprazole 20 mg tablet,delayed release (DR/EC) 20 mg PO DAILY ferrous sulfate [FeroSul] 325 mg (65 mg iron) tablet 0 mg PO Rectiv 0.4 % (w/w) ointment SD BEDTIME Ref[place]: [facility] [place] [facility] [Provider Group] - 1 week [facility] [place]Provider Group] - 1 week Physician,Unknown J [Primary Care Provider] - 2 days
[2021-12-10 20:18] LABS: MANUAL DIFF FLAG NO
[2021-12-10 20:19] LABS: Basophils Absolute Auto 0.1 X10*3/uL (0.0-0.2); Basophils Percent Auto 0.5 % (0-2); Eosinophils Absolute Auto 0.5 X10*3/uL (0.0-0.4); Eosinophils Percent Auto 3.9 % (0-4); Hematocrit 44.6 % (37.0-47.0); Hemoglobin 15.2 g/dl (12.0-16.0); Imm Gran Abs Auto 0.03 X10*3/uL (0.00-0.03); Imm Gran Pct Auto 0.3 % (0.0-0.4); Lymphocytes Absolute Auto 3.2 X10*3/uL (1.2-4.9); Lymphocytes Percent Auto 27.4 % (20-40); Mean Corpuscular HGB Conc 34.1 g/dl (31.0-35.0); Mean Corpuscular Hemoglobin 29.5 pg (27.0-33.0); Mean Corpuscular Volume 86.6 fL (80.0-98.0); Monocytes Absolute Auto 0.7 X10*3/uL (0.1-1.2); Monocytes Percent Auto 6.1 % (2-11); Neutrophils Absolute Auto 7.3 x10*3/uL (2.0-8.3); Neutrophils Percent Auto 61.8 % (45-73); Platelet Count 427 X10*3/uL (160-400); Red Blood Count 5.15 X10*6/uL (4.20-5.50); Red Cell Distribution Width 13.1 % (11.0-16.0); White Blood Count 11.7 X10*3/uL (4.8-10.8)
[2021-12-10 20:27] LABS: INTERNATIONAL NORM RATIO 1.1 (0.9-1.1); Prothrombin Time 12.4 SEC (10.0-13.1)
[2021-12-10] MEDS: Losartan Potassium 50 MG TABLET 100 MG PO (20:30)
[2021-12-10 20:34] LABS: COVID-19 Test Negative (Negative)
[2021-12-10 20:40] LABS: C Reactive Protein 1.73 mg/dL (< or = 0.50)
[2021-12-10 20:42] LABS: Alanine Aminotransferase 12 U/L (0-31); Albumin Level 4.6 g/dL (3.5-5.0); Alkaline Phosphatase 128 U/L (39-117); Anion Gap 16 (12-20); Aspartate Amino Transferase 16 U/L (5-31); Bilirubin Direct 0.2 mg/dL (0.0-0.5); Bilirubin Total 0.6 mg/dL (0.0-1.0); Blood Urea Nitrogen 11 mg/dL (9-16); Calcium 9.5 mg/dL (8.4-10.2); Carbon Dioxide 24 mmol/L (22-29); Chloride 107 mmol/L (96-108); Creatinine Clr Calc Pharmacy 51.6; Estimated Glomerular Filt Rate > 60; Glucose Random 95 mg/dL (60-115); Lipase 13 U/L (8-78); Potassium 4.1 mmol/L (3.3-5.1); Sodium 143 mmol/L (135-145); Total Protein 7.4 g/dL (6.5-8.0)
[2021-12-10 20:46] LABS: Troponin-I High Sensitivity 6.7 ng/L (<3.5-17.0)
--- NOTE | 2021-12-10 21:25 | PC.NURSE ---
Pt. in room with daughter at bedside. Pt. BP continues to remain elevated. Will notify Provider.
[2021-12-10 21:26] LABS: Erythrocyte Sedimentation Rate 18 MM/HR (0-20)
[2021-12-10 21:27] VITALS: BP 208/74; PULSE 94; RESP 26; O2SAT 98
[2021-12-10 21:48] LABS: Appearance Urine Clear; Color Urine Yellow; Glucose Urine UA Negative (Negative); Leukocyte Esterase Urine Negative (Negative); Nitrite Urine Negative (Negative); PH 7.5 (5.0-9.0); Specific Gravity - Urine <= 1.005 (1.005-1.025); Urine Blood Negative (Negative); Urine Ketones Negative (Negative); Urine Protein Negative (Neg-Trace)
[2021-12-10 22:30] VITALS: BP 178/56; PULSE 88; RESP 25; O2SAT 97
[2021-12-10] MEDS: Labetalol HCL 100 MG/20 ML VIAL IVPUSH (22:32)
[2021-12-10 23:33] VITALS: BP 173/61; PULSE 81; RESP 24; TEMP 36.9; O2SAT 97
[2021-12-11 00:16] LABS: Troponin-I High Sensitivity 10.4 ng/L (<3.5-17.0)
[2021-12-11 00:30] VITALS: BP 162/61; PULSE 77; RESP 22; TEMP 36.7; O2SAT 96
[2021-12-11] MEDS: amLODIPine Besylate 2.5 MG TABLET PO (00:47)
== END 2021-12-11 02:13 | disposition home or self-care (01) ==
PROVIDERS: Physician Assistant; Emergency Provider Emergency Medicine
DX: R51.9 Headache, unspecified (principal); R42 Dizziness and giddiness; I10 Essential (primary) hypertension; I44.0 Atrioventricular block, first degree; Z20.822 Contact with and (suspected) exposure to COVID-19; R50.9 Fever, unspecified
CPT/HCPCS: 36415; 70450; 80053; 81003; 82248; 83690; 84484; 85025; 85610; 85652; 86140; 87635; 93005; 96374; 99284

== ENCOUNTER → 2021-12-23 14:16 | Outpatient (BNVA) | payer OTHER, SELFPAY | PROVIDERS: PCP Internal Medicine Geriatric Medicine; Visit Provider Hospitalist | DX: J47.9 Bronchiectasis, uncomplicated (principal); J30.9 Allergic rhinitis, unspecified; R94.31 Abnormal electrocardiogram [ECG] [EKG] | CPT/HCPCS: 99212 ==

== ENCOUNTER 2021-12-30 17:22 | Emergency (ER) | payer OTHER, SELFPAY ==
[2021-12-30 17:45] VITALS: BP 152/78; PULSE 95; O2SAT 97
[2021-12-30 17:50] VITALS: BP 154/76; PULSE 86; RESP 16; TEMP 36.6; O2SAT 98; BMI 28.9
--- NOTE | 2021-12-30 19:33 | ED.BACK ---
HPI - Back Pain/Injury General Chief Complaint: Back Pain/Injury Stated Complaint: rt flank pain Time Seen by Provider: 12/30/21 17:41 Source: patient, family and paraprofessional interpreter History of Present Illness HPI Narrative: 81-year-old female who presents with complaints of right lower back discomfort which she states she has had before and states that the pain radiates down the posterior aspect of her right lower extremity making it difficult to walk but denies any fever, chills, GI or symptoms and denies any bowel or bladder difficulties or numbness in the groin area. Related Data Allergies Allergy/AdvReac Type Severity Reaction Status Date / Time No Known Allergies Allergy Verified 12/30/21 17:53 Review of Systems Review of Systems: Pertinent positives and negatives as stated in HPI 10 point review of systems is otherwise negative. PMFSH Past Medical History Source: nursing notes reviewed Social History Social History Advance Directives: Yes Advance Directives on File: Yes Advance Directives Date on File: 12/30/21 Physical Exam Vital Signs: Vital Signs: Last Vital Signs Temp 97.8 F 12/30/21 17:50 Pulse 86 12/30/21 17:50 Resp 16 12/30/21 17:50 BP 154/76 H 12/30/21 17:50 Pulse Ox 98 12/30/21 17:50 O2 Del Method 12/30/21 17:50 BMI result Body Mass Index 28.9 VITAL SIGNS: Reviewed. GENERAL: Well developed, well nourished, in no acute distress. HEAD: Normocephalic/atraumatic EYES: PERRLA, EOMI EARS: Ext canals without abnormality OROPHARYNX: no oral lesions noted, posterior pharynx clear LUNGS: Normal breath sounds. No adventitious sounds or accessory muscle use. SpO2<98> CARDIOVASCULAR: Regular rate and rhythm without noted murmurs, no JVD or lower extremity edema. ABDOMEN: Soft, non-tender, non-distended with bowel sounds. BACK: There is no midline vertebral tenderness, however there is tenderness over the right lower back, specifically the SI and no noted strength deficits when checked symmetrically. MUSCULOSKELETAL: No tenderness, deformities, or effusions noted on gross inspection. EXTREMITIES: No cyanosis, clubbing or edema. SKIN: Inspection of the skin reveals no rashes NEUROLOGIC: Alert and oriented x 4. Strength and sensation to light touch were grossly intact x 4. Course Course Course Narrative: 81-year-old female with history and clinical presentation consistent with sciatica and no evidence to suggest cauda equina, UTI, or focal deficits. Patient was treated with combination analgesics as well as a lidocaine patch and on re-evaluation is noted to have complete resolution of her discomfort and is able to ambulate without difficulty. She is otherwise discharged home in stable condition with continued treatment. Medications Administered Discontinued Medications Generic Name Dose Route Start Last Admin Trade Name Freq PRN Reason Stop Dose Admin Acetaminophen 975 mg 12/30/21 19:31 12/30/21 19:53 Acetaminophen 325 Mg Tablet PO 12/30/21 19:32 975 mg ONCE ONE Administration Ketorolac Tromethamine 15 mg 12/30/21 19:31 12/30/21 19:50 Ketorolac Tromethamine 15 Mg/Ml Vial IM 12/30/21 19:32 15 mg ONCE ONE Administration Lidocaine 1 patch 12/30/21 19:31 12/30/21 19:53 Lidocaine 4 % Patch Adh..Patch TRANSDERMA 12/30/21 19:32 1 patch ONCE ONE Administration Protocol Discharge Plan Discharge Clinical Impression: Lumbar radiculopathy, Sciatica Patient Disposition: Home, Self-Care Instructions: Lower Back Exercises (ED), Lumbar Radiculopathy (ED), Sciatica (ED) Additional Instructions: 1. Reanudar todos los medicamentos caseros seg?n lo prescrito. 2. Tylenol 1000 mg, por v?a oral, cada 6 horas seg?n sea necesario para controlar el dolor. No exceda los 4000 mg dentro de las 24 horas. 3. Ibuprofeno 400 mg, por v?a oral con leche o comida, cada 6 horas seg?n sea necesario para controlar el dolor. Puede kevyn avery medicamento con Tylenol para mejorar el alivio de los s?ntomas. 4. Parche de lidoca?na, aplique en el ?juli de m?xima sensibilidad romi se indica en el empaque exterior. 5. Juan un seguimiento con landeros proveedor de atenci?n primaria llamando a la oficina por la ma?amrik y discutiendo brenda posible derivaci?n a fisioterapia. Regrese a la kevyn de emergencias si los s?ntomas empeoran. Referrals: Name,MD Rohit [Primary Care Provider] - Print Language: Guamanian
[2021-12-30] MEDS: Ketorolac Tromethamine 15 MG/ML VIAL IM (19:50)
[2021-12-30] MEDS: Acetaminophen 325 MG TABLET 975 MG PO (19:53)
[2021-12-30] MEDS: Lidocaine 4 % Patch ADH..PATCH 1 PATCH TRANSDERMA (19:53)
== END 2021-12-30 22:26 | disposition home or self-care (01) ==
PROVIDERS: Emergency Provider Student in an Organized Health Care Education/Training Program; PCP Internal Medicine Geriatric Medicine
DX: M54.16 Radiculopathy, lumbar region (principal); M54.41 Lumbago with sciatica, right side
CPT/HCPCS: 96372; 99283; 99284; J1885

== ENCOUNTER 2022-02-07 14:08 | Outpatient (REF) | payer OTHER, SELFPAY | END 2022-02-07 14:09 | disposition home or self-care (01) | LOC: HO.XRAY 14:08 | PROVIDERS: PCP Internal Medicine Geriatric Medicine; Visit Provider Hospitalist | DX: J47.9 Bronchiectasis, uncomplicated (principal) | CPT/HCPCS: 71046 ==

== ENCOUNTER → 2022-03-07 13:45 | Outpatient (BNVA) | payer OTHER, SELFPAY | PROVIDERS: PCP Internal Medicine Geriatric Medicine; Referring Provider Internal Medicine Geriatric Medicine; Visit Provider Internal Medicine Cardiovascular Disease | DX: R06.02 Shortness of breath (principal) | CPT/HCPCS: 99202 ==

== ENCOUNTER → 2022-04-25 14:43 | Outpatient (BNVA) | payer OTHER, SELFPAY | PROVIDERS: PCP Internal Medicine Geriatric Medicine; Visit Provider Hospitalist | DX: J47.9 Bronchiectasis, uncomplicated (principal); J30.9 Allergic rhinitis, unspecified; Z79.899 Other long term (current) drug therapy | CPT/HCPCS: 99212 ==

== ENCOUNTER → 2022-06-09 11:05 | Outpatient (BNVA) | payer OTHER, SELFPAY | PROVIDERS: PCP Internal Medicine Geriatric Medicine; Visit Provider Surgery Vascular Surgery | DX: I83.12 Varicose veins of left lower extremity with inflammation (principal) | CPT/HCPCS: 99212 ==

== ENCOUNTER → 2022-09-06 08:45 | Outpatient (REF) | payer OTHER, SELFPAY ==
--- NOTE | 2022-09-06 08:50 | CA_ITS ---
Transthoracic Echocardiogram Patient (Last, First, Middle): Leeanna Thornton N Gender: Female Date of : 1940 Age: 81 Procedure Date: 09/06/2022 Procedure Type: Transthoracic Echocardiogram Location: OP Height: 157.48 cm Weight: 68.04 kg BSA: 1.69 m2 Heart Rate: 72 bpm BP: 150 / 90 mmHg Mutuel Cashier: CRISTI Basilio MD: Franko Sheffield MD Center Director Lead Teacher: Franko Sheffield MD Symptoms: R06.02 - Shortness of breath Study Quality: Adequate ECG Rhythm: Sinus Conclusions: - 1. Hyperdynamic LV systolic function with LVEF of greater than 70% with increased flow across the aortic valve suggestive of high stroke volume with impaired relaxation filling pattern 2. Normal cardiac valvular Dopplers 3. No gross pericardial effusion Findings Left Ventricle Normal left ventricular cavity size. There is normal left ventricular wall thickness. The left ventricular systolic function is hyperdynamic. The visually estimated ejection fraction is >70%. Spectral Doppler is indicative of an impaired relaxation filling pattern. E/E prime ratio is between 8 and 15 consistent with indeterminate filling pressures. Right Ventricle Normal right ventricular cavity size and systolic function. Atria The left atrium is likely dilated. There is lipomatous hypertrophy of the interatrial septum. There is no evidence of interatrial shunt. The right atrium is normal in size. Aortic Valve Normal aortic valve structure and function. There is no aortic valve stenosis. There is mild aortic valve regurgitation. Mitral Valve There is mild anterior and posterior mitral leaflet thickening. There is mild mitral valve regurgitation. There is no mitral valve stenosis. Pulmonic Valve The pulmonic valve was not well visualized. Tricuspid Valve Likely normal tricuspid valve structure and function. Tricuspid regurgitation envelope is inadequate for calculation of right ventricular systolic pressure. Great Vessels All visible segments of the aorta are normal in size. The pulmonary artery was not well visualized. Venous The inferior vena cava is normal in size and collapses greater than 50% with inspiration. Pericardium/Pleural There is no evidence of pericardial effusion. Measurements 2D Linear Measurements IVSd: 0.75 0.6-0.9/0.6-1.0 cm LVIDd: 4.09 3.9-5.3/4.2-5.9 cm LVIDd Index: 2.42 2.4-3.2/2.2-3.1 cm/m2 LVIDs: 1.86 2.0-3.6 cm LVPWd: 0.86 0.7-1.1 cm LA Diam: 3.10 2.7-3.8/3.0-4.0 cm LAIDs Index: 1.83 1.5-2.3 cm/m2 LV Mass: 120.94 67-162/88-224 g LV Mass Index: 71.56 43-95/49-115 g/m2 LVOT Diam: 1.80 3.0+(-)1.3 cm 2D Systolic Function EF 4C: 80.30 >55% EF 2C: 60.60 >55% EF BiP: 73.00 >55% Mitral Valve MV Pk E: 0.97 MV PK A: 1.28 MV Decel Time: 238.00 E/A: 0.80 E'Lateral: 10.00 E'Medial: 8.38 E/E' Med: 11.60 E/E' Lat: 9.70 PHT: 70.00 MVA PHT: 3.14 Decel [place]: 4.07 Aortic Valve AoV Pk Gaurang: 2.18 AoV Mn Gaurang: 1.44 AoV VTI: 0.49 AoV Pk Grad: 19.00 Aov Mn Grad: 9.00 JANINA Cont.VTI: 2.35 LVOT LVOT Pk Gaurang: 1.84 LVOT Mn Gaurang: 1.29 LVOT VTI: 0.46 LVOT Pk Grad: 14.00 LVOT Mn Grad: 8.00 LVOT Diam: 1.80 LVOT Area: 2.54 Diastolic Function MV Pk E: 0.97 MV Pk A: 1.28 E/A: 0.80 E'Medial: 8.38 E/E' Med: 11.60 E' Laterial: 10.00 E/E' Lat: 9.70 Right Ventricle TAPSE (mm): 17.80 TVS' Gaurang: 8.92 Tricuspid Valve RA Press: 3.00 Great Vessels Aorta Sinus of Valsalva: 2.90 2.0-3.5 cm Ao Asc: 3.30 2.1-3.4 cm Pulmonary Valve PV Pk Gaurang: 1.29 Peak PV Grad: 7.00 Updated in Other Vendor System with Status of Final Franko Sheffield MD electronically signed on 09/06/2022 11:20:09 AM with status of Final
== END ==
LOC: HO.CARD 08:45
PROVIDERS: PCP Internal Medicine Geriatric Medicine; Visit Provider Internal Medicine Cardiovascular Disease
DX: R06.02 Shortness of breath (principal)
CPT/HCPCS: 93306

== ENCOUNTER → 2022-09-06 08:50 | Outpatient (BNV) | payer OTHER, SELFPAY | PROVIDERS: PCP Internal Medicine Geriatric Medicine; Visit Provider Internal Medicine Cardiovascular Disease | DX: I34.0 Nonrheumatic mitral (valve) insufficiency (principal) | CPT/HCPCS: 93306 ==

== ENCOUNTER 2022-09-28 10:36 | Outpatient (REF) | payer OTHER, SELFPAY ==
[2022-09-28 12:29] LABS: Anion Gap 15 (12-20); Blood Urea Nitrogen 17 mg/dL (9-16); Calcium 9.7 mg/dL (8.4-10.2); Carbon Dioxide 24 mmol/L (22-29); Chloride 101 mmol/L (96-108); Estimated Glomerular Filt Rate > 60; Glucose Random 85 mg/dL (60-115); Potassium 3.7 mmol/L (3.3-5.1); Sodium 136 mmol/L (135-145)
== END 2022-09-28 10:37 | disposition home or self-care (01) ==
LOC: HO.HHCL 10:36
PROVIDERS: Visit Provider Internal Medicine Geriatric Medicine
DX: I10 Essential (primary) hypertension (principal); G47.33 Obstructive sleep apnea (adult) (pediatric)
CPT/HCPCS: 36415; 80048

== ENCOUNTER 2022-10-31 14:44 | Outpatient (AMB) | payer OTHER, SELFPAY ==
[2022-10-31 14:50] VITALS: PULSE 69; O2SAT 96; BMI 29.3
--- NOTE | 2022-10-31 14:50 | A.OFFVIS_ITS ---
Intake Vital Signs 10/31/22 14:50 Height 5 ft 2 in Weight 160 lb 4.417 oz BMI 29.3 Pulse 69 Pulse Source Pulse Oximeter Pulse Oximetry (%) 96 Oxygen Delivery Method Room Air Intake Visit Reasons: Asthma Allergies amoxicillin [Augmentin] Allergy (Severe, Verified 10/31/22 14:51) Rash and Hives atorvastatin Allergy (Severe, Verified 10/31/22 14:51) Tachycardia clavulanic acid [Augmentin] Allergy (Severe, Verified 10/31/22 14:51) Rash and Hives nitrofurantoin [Macrobid] Allergy (Severe, Verified 10/31/22 14:51) Rash and Hives pravastatin Allergy (Severe, Verified 10/31/22 14:51) Rash and Hives lactose [LACTOSE] Allergy (Mild, Verified 10/31/22 14:51) DIARRHEA pollen Allergy (Mild, Uncoded 10/31/22 14:51) Rash HPI HPI Comments History of Present Illness Details The patient is an 82 year old woman with a history of COPD in addition to bronchiectatic changes with 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 She describes worsening dyspnea on exertion. Moderate in severity. Sometimes when she is on the phone or even eating she gets short of breath. She has also been coughing which has been usually nonproductive. She has been using long respiratory therapy without any significant improvement. She also describes left-sided chest discomfort. At this point she does not have it. The discomfort usually radiates to the back. She has not had a cardiac workup in a while. She had an EKG from 2014 from [facility] that I was able to review with some conduction abnormalities. She also underwent a bronchoscopy back in August of 2017 with cultures positive for Pseudomonas. At this point would consider treating night to see if she has any improvement of her symptoms. We had to pulmonary function studies and her FEV1 was only 1.4 L. will fill out her placard for for handicapped parking. Otherwise the patient is without any other complaints period . We did review the use of the flutter valve. 11/15/2019 The patient is here for pulmonary follow-up visit. Overall she is doing a lot better when compared to her last visit. She required high doses of prednisone and also antibiotics. Her cough is better her wheezing is improved. She still has a barky cough due to some degree of tracheomalacia. She continues to very aggressive respiratory regimen. Her symptoms are still present. At this point will do allergy testing to see if she has a candidate for any biologic therapy. She did have elevated eosinophilia and maybe respond well to Biologic therapy. But first we will optimize her respiratory therapy. 02/26/2019 the patient is here for pulmonary follow-up visit. Overall the patient is doing very well with the medication changes. She required prednisone. She is not requiring her nebulizer. She is responding very well to the to the trelegy inhaler. She continues to have good response to the Daliresp. Clear to keep her on the lower dose. We had increased her azithromycin to the 500 mg she seems to be tolerating that well. She needs to have serial EKGs to make sure that he maintains within normal limits. 06/18/2020 The patient is here for a follow up visit. Overall doing well. She has a cough, mild to moderate in severity. Complaining of dyspnea on exertion, mild in severity. Her PFTs do demonstrate COPD. She has been responding well to the current respiratory therapy. The patient is interested in participating in pulmonary rehabilitation. 06/29/2020 the patient is here for sick visit. She started developing worsening shortness of breath and chest tightness the last couple days. She has been getting worse. Denies any fevers or chills. She does have a cough. Denies any exposure to anybody with COVID-19. In the meantime she has been using her nebulizer every 3-4 hours with some partial improvement of her symptoms. In the office she was having some coughing and increasing wheezing. Therefore she was given a nebulized therapy and she was also given Solu-Medrol. The patient's pulse ox was reassuring. Will have her get some blood work before she goes home. If the patient is condition does not respond to the outpatient therapy the patient needs to go to the ER seek further medical advice. 11/19/2020 the patient is here for a pulmonary follow-up visit. Overall she is feeling better from a respiratory status. She did require prednisone and antibiotics during the last evaluation back in June. More recently than that she did have a fall while she was in her home and she complaint of significant pain at the level of the coccyx. She was evaluated in the ED which she was found to have a small fracture. Currently she is feeling a lot better. Denies any significant discomfort. She continues with respiratory therapy. Denies any significant cough or wheezing. She does have her baseline shortness of breath with activity which is [id number] severity. At this point will continue with current respiratory regimen. also to note she stop the Trelegy inhaler and she has been on the Breo and appears to be better for her she is tolerating it well. 04/13/2021 the patient is here for sick visit. Apparently she has been getting worsening shortness of breath now for the last 2-3 days. She feels like she has a hard time taking a breath in due to discomfort primarily on the left side of the chest area. Has been very winded with minimal activity. Has been also coughing more. She has been using her nebulizer more often. She did receive the COVID vaccines in addition to the booster. However, she did not test for COVID-19. Will make sure with test her today. In the meantime on examination she does not have significant wheezing or rhonchi. She did give herself a treatment prior to her arrival. She also has been somewhat tremulous. We did take a briefly for a walking test and she maintain a pulse ox of 98% with activity which is reassuring. She does not have any chest discomfort at this time. However, she does look fatigued and sickly appearing therefore I am concerned about the patient. I will have her get an x-ray in addition to blood work And her COVID-19 antigen testing. 06/14/2021 the patient is here for a pulmonary follow-up visit. She did recover from her last illness. She was tested for COVID which was negative. The patient continues to take all the precautions necessary. She responded well to the Daliresp therapy. She was able to also lose weight which is been Reassuring. She continues to have a hard time sleeping at nighttime. She does not use any sleep aids. She does wake up tired. She have daytime drowsiness and headaches in the morning. The patient may benefit from oxygen supplementation at nighttime. Will go ahead and perform an overnight oximetry at this time. In the meantime she is willing to try trazodone to see if she can have better sleep hygiene. She will continue with current respiratory regimen at this time. 12/23/2021 the patient is here for pulmonary follow-up visit. Overall she is doing very well from a respiratory status. Denies any significant cough or chest congestion. Recently, however, the patient developed severe headaches and she had elevated blood pressures. she was taken to the [facility] ED which she was evaluated for hypertensive urgency. that ER visit she had blood work which was reassuring. The ED demonstrated a 1st degree AV block in addition to a right bundle branch block. The patient also had a QTC that was 516. the patient has a very abnormal EKG when therefore needs to see Cardiology. Since most of the records are already. Will go ahead and refer her to 1 of our cardiologists. Meantime she has been on azithromycin 3 times a week. In view of the elevated QTC and the conduction abnormalities will go ahead and stop that medication at this time. She will continue with the rest of the medications. She is going to monitor her respiratory symptoms while coming off the macrolide suppression therapy. In addition to that the patient has been noticing some weight loss. I will make sure that she has an x-ray on record. 04/25/2022 the patient is here for a pulmonary follow-up visit. The patient has been better from a respiratory status. She continues on the Breo. She stop the Daliresp. She was having significant amount of weight loss and also her insurance would not cover any longer. Her major issue is significant blood pressure issues. She did go to the ER with hypertensive urgency. The patient also was given additional blood pressure medications. Now she is having significant lower extremity edema likely from the CT scan gentle mando. She will be seen her primary care doctor tomorrow. The patient also was seen by Cardiology in awaiting a cardiac evaluation. She did have an abnormal EKG during the last visit. Her QTC was prolonged therefore the patient is no longer on macrolide therapy. Clinically the patient is doing well she does not need that therapy at this time which is reassuring. We did review her last chest x- ray that was back in January 2022 with some degree of atelectasis but otherwise her lungs appear to be clear. 10/31/2022 the patient is here for pulmonary follow-up visit. The patient has been noticing worsening dyspnea on exertion for the last few days. She states that is primarily because she has not been able to use a nebulizer. She has nebulizer supplies but they are more than 3-month-old she was concerned about using it. I did reassure them that is when she washes in well which she does she can using for longer period time. In the meantime she can call the [facility] in request for refills. The patient has been using her inhalers with good effect. She did have an echocardiogram from the heart demonstrating normal ejection fraction although she does have what appears to be some diastolic dysfunction. Otherwise patient is doing well. She will get a Prevnar 20 vaccine today. She also consider getting the RSV in the flu shot when available. [facility] Medical History Abnormal EKG Acid reflux Asthma Asthma-COPD overlap syndrome Bronchiectasis Chronic allergic rhinitis Chronic obstructive pulmonary disease HTN (hypertension) Nocturnal hypoxia RBBB (right bundle branch block) Renal artery atherosclerosis Venous insufficiency Social History Alcohol intake: never Patient Tobacco Use Status: Never used Tobacco Review of Systems Const Denies fever(s), Denies night sweats and Reports weight loss ENT Denies change in voice, Denies lip swelling, Denies mouth pain, Reports nasal congestion, Reports nasal discharge and Denies tongue swelling Card Denies chest pain, Denies dyspnea and Reports dyspnea on exertion Resp Reports cough, Denies excessive phlegm production, Denies pain on inspiration, Reports pain with cough, Denies dyspnea, Reports dyspnea on exertion and Denies wheezing GI Denies abdominal pain Musc Denies no additional complaints Neuro Denies Neuro-related abnormal movements Psych Denies no additional complaints Skyler/Lymph Denies easy bleeding and Denies lymphadenopathy Aller/Immun Denies lip swelling, Denies tongue swelling and Denies wheezing Physical Exam Vital Signs: Last Vital Signs Pulse 69 10/31/22 14:50 Pulse Ox 96 10/31/22 14:50 Oxygen Delivery Method Room Air 10/31/22 14:50 BMI result Body Mass Index 29.3 Const General: comfortable and alert Neck Neck: Yes normal visual inspection, Yes full ROM and Yes no lymphadenopathy Chest Chest palpation & inspection: normal inspection of the chest Resp Auscultation: no crackles, no rales, wheezes and diminished lung sounds Cardio Rate: regular rate Rhythm: regular rhythm Heart sounds: S1 normal heart sound present and S2 normal heart sound present GI Palpation (GI): Soft to palpation and nontender Auscultation: normal bowel sounds Skin General skin exam: rashes and/or lesions noted Immunizations pneumoc 20-sandor conj-dip cr(PF) 0.5 mL IM syringe Performing Provider: Walt Haywood MD Performing Location: [facility] Administered by: Jess Donis LPN on 10/31/22 15:20 Dose Route Admin Location Dispensed Lot Number Expiration Date NDC Harness Rigger 0.5 mL IM Left Deltoid 0.5 mL [id number] 12/21/23 [employer] 2 VIS Given Date VIS Provided VIS Publication Date 10/31/22 Single Vaccine 22 Eligibility Eligibility Date Funding Source Not [facility] Eligible 10/31/22 Private Assessment & Plan Assessment & Plan (1) Asthma-COPD overlap syndrome: Code(s): J44.9 - Chronic obstructive pulmonary disease, unspecified (2) Chronic allergic rhinitis: Code(s): J30.9 - Allergic rhinitis, unspecified (3) Bronchiectasis: Code(s): J47.9 - Bronchiectasis, uncomplicated Qualifiers: Bronchiectasis type: uncomplicated Qualified Code(s): J47.9 - Bronchiectasis, uncomplicated Plan Continue Breo daily GRETCHEN as needed stopped Daliresp 250mcg daily. continue trazodone for sleep, 1/2 tablet follow-up in 6 months Orders: Orders Pneumococcal 20 Immunization Today Z23 - Encounter for immunization Coding Level of Care Code Est Pt Level 4 (57277) Diagnoses Asthma-COPD overlap syndrome J44.9 Chronic allergic rhinitis J30.9 Bronchiectasis without complication J47.9 Bronchiectasis type: uncomplicated Time Spent (min) 17
== END 2022-10-31 15:21 | disposition home or self-care (01) ==
PROVIDERS: PCP Internal Medicine Geriatric Medicine; Visit Provider Hospitalist
DX: J44.9 Chronic obstructive pulmonary disease, unspecified (principal)
CPT/HCPCS: 99214

== ENCOUNTER → 2022-10-31 14:44 | Outpatient (BNVA) | payer OTHER, SELFPAY | PROVIDERS: Visit Provider Hospitalist | DX: J47.9 Bronchiectasis, uncomplicated (principal); J30.9 Allergic rhinitis, unspecified; Z79.899 Other long term (current) drug therapy; Z23 Encounter for immunization | CPT/HCPCS: 90471; 90677; 99212 ==

== ENCOUNTER 2022-11-21 12:27 | Outpatient (REF) | payer OTHER, SELFPAY ==
[2022-11-21 13:35] VITALS: BMI 27.4
[2022-11-21 13:38] VITALS: BP 186/76; PULSE 83; RESP 18; TEMP 36.4; O2SAT 98
== END 2022-11-21 12:28 | disposition home or self-care (01) ==
LOC: HO.MS 12:27
PROVIDERS: PCP Internal Medicine Geriatric Medicine; Visit Provider Ophthalmology
DX: H02.826 Cysts of left eye, unspecified eyelid (principal); I10 Essential (primary) hypertension
CPT/HCPCS: 88304

== ENCOUNTER 2022-12-05 13:55 | Outpatient (REF) | payer OTHER, SELFPAY ==
--- NOTE | ~2022-12-05 | MM_ITS ---
EXAMINATION: MM SCREENING DIGITAL BREAST TOMOSYNTHESIS, BILATERAL CLINICAL INFORMATION: Screening. Asymptomatic. COMPARISON: Mammography: This study is compared with prior exams dating back to 2017. TECHNIQUE: Digital breast tomosynthesis is performed in both the craniocaudal and mediolateral oblique views along with computer-aided detection (CAD). Synthesized 2D images are generated from the tomosynthesis. FINDINGS: There are scattered areas of fibroglandular density (ACR BI-RADS breast composition Category b). In the upper outer quadrant of the right breast, anterior to the benign group of coarse calcifications, there is a focal asymmetry for which additional mammographic evaluation is advised. Sonography of this region is at the discretion of the diagnostic radiologist. There is a tissue marker in the medial aspect of the right breast from prior benign percutaneous biopsy. In the left breast, there are no significant masses, abnormal calcifications, or other abnormalities. Few, unchanged, coarse, bilateral, benign calcifications are present. MM/MM tomosynthesis screening BI IMPRESSION: Right breast focal asymmetry warrants additional mammographic evaluation. Sonography may be performed at the discretion of the diagnostic radiologist. No mammographic signs of malignancy left breast. ASSESSMENT: BI-RADS BI-RADS 0 - Incomplete: Needs additional Imaging. RECOMMENDATION: 1. Additional views of the right breast. 2. Targeted ultrasound if warranted after review of the additional views. 3. Radiology department staff will contact the patient for additional imaging. Additional Imaging required This examination should not preclude the clinical evaluation of a suspicious palpable abnormality. This patient's information was entered into a reminder system with a target due date for their next mammogram.
== END 2022-12-05 13:56 | disposition home or self-care (01) ==
LOC: HO.MAMMO 13:55
PROVIDERS: PCP Internal Medicine Geriatric Medicine; Visit Provider Internal Medicine Geriatric Medicine
DX: Z12.31 Encounter for screening mammogram for malignant neoplasm of breast (principal)
CPT/HCPCS: 77063; 77067

== ENCOUNTER → 2022-12-05 14:15 | Outpatient (BNV) | payer OTHER, SELFPAY | PROVIDERS: PCP Internal Medicine Geriatric Medicine; Visit Provider Radiology Diagnostic Radiology | DX: Z12.31 Encounter for screening mammogram for malignant neoplasm of breast (principal) | CPT/HCPCS: 77063; 77067 ==

== ENCOUNTER 2023-01-05 17:44 | Outpatient (REF) | payer OTHER, SELFPAY ==
[2023-01-05 19:06] LABS: Influenza A PCR NEGATIVE (Negative); Influenza B PCR NEGATIVE (Negative); Resp Syncy Virus RNA Qual PCR NEGATIVE (Negative); SARS COV2 PCR INHOUSE NEGATIVE (Negative)
== END 2023-01-05 17:45 | disposition home or self-care (01) ==
LOC: HO.HHCLNP 17:44
PROVIDERS: Visit Provider Emergency Medicine
DX: Z11.52 Encounter for screening for COVID-19 (principal); J44.1 Chronic obstructive pulmonary disease with (acute) exacerbation
CPT/HCPCS: 0241U

== ENCOUNTER 2023-01-20 09:37 | Outpatient (REF) | payer OTHER, SELFPAY ==
[2023-01-20 12:09] LABS: Anion Gap 12 (12-20); Blood Urea Nitrogen 18 mg/dL (9-16); Calcium 9.4 mg/dL (8.4-10.2); Carbon Dioxide 27 mmol/L (22-29); Chloride 105 mmol/L (96-108); Estimated Glomerular Filt Rate > 60; Glucose Random 87 mg/dL (60-115); Potassium 3.9 mmol/L (3.3-5.1); Sodium 140 mmol/L (135-145)
== END 2023-01-20 09:38 | disposition home or self-care (01) ==
LOC: HO.HHCL 09:37
PROVIDERS: Visit Provider Internal Medicine Geriatric Medicine
DX: Z01.818 Encounter for other preprocedural examination (principal); I45.10 Unspecified right bundle-branch block; I11.0 Hypertensive heart disease with heart failure; I50.32 Chronic diastolic (congestive) heart failure
CPT/HCPCS: 36415; 80048

== ENCOUNTER 2023-01-20 10:31 | Outpatient (REF) | payer OTHER, SELFPAY ==
--- NOTE | ~2023-01-20 | MM_ITS ---
EXAMINATION: MM DIAGNOSTIC DIGITAL BREAST TOMOSYNTHESIS, RIGHT US BREAST LIMITED, RIGHT MAMMOGRAPHY: CLINICAL INFORMATION: Focal asymmetry upper outer quadrant of the right breast, for diagnostic views and ultrasound. COMPARISON: Mammography: 12/05/2022, 10/02/2018, 11/24/2016, 10/28/2015. TECHNIQUE: Digital breast tomosynthesis is performed in the following views: 3-D spot compression right CC and MLO views. FINDINGS: There are scattered areas of fibroglandular density (ACR BI-RADS breast composition Category b). Spot compression views demonstrate no persistent mass or architectural distortion. The small focus of asymmetry right breast upper outer quadrant appears to represent normal glandular tissue just anterior to benign appearing dystrophic calcifications. In absence, this has an identical appearance when compared with numerous priors, dating back to 2016. ULTRASOUND: CLINICAL INFORMATION: Focal asymmetry upper outer quadrant of the right breast, for diagnostic views and ultrasound. COMPARISON: None TECHNIQUE: Targeted sonographic evaluation was performed using a high frequency linear transducer. The upper outer quadrant of the right breast was targeted. Selected archived documentation. FINDINGS: RIGHT BREAST: There is a mixture of fatty and fibroglandular tissue. No suspicious mass is seen. There is no pathologic acoustic shadowing. There is no cystic abnormality. Only normal breast tissue is identified. MM/MM tomosynthesis added views R IMPRESSION: No persistent findings suspicious for malignancy. Recommend the patient return to annual screening mammography. OVERALL ASSESSMENT: Mammography: BI-RADS 2 - Benign Findings Ultrasound: BI-RADS 2 - Benign Findings RECOMMENDATION: 1 year F/U This patient's information was entered into a reminder system with a target due date for their next mammogram.
== END 2023-01-20 10:32 | disposition home or self-care (01) ==
LOC: HO.MAMMO 10:31
PROVIDERS: PCP Internal Medicine Geriatric Medicine; Visit Provider Internal Medicine Geriatric Medicine
DX: N64.89 Other specified disorders of breast (principal)
CPT/HCPCS: 76642; 77061; 77065

== ENCOUNTER → 2023-01-20 11:00 | Outpatient (BNV) | payer OTHER, SELFPAY | PROVIDERS: PCP Internal Medicine Geriatric Medicine; Visit Provider Radiology Diagnostic Radiology | DX: R92.321 Mammographic fibroglandular density, right breast (principal); R92.1 Mammographic calcification found on diagnostic imaging of breast | CPT/HCPCS: 76642; 77061; 77065 ==

== ENCOUNTER 2023-02-18 16:58 | Emergency (ER) | payer OTHER, SELFPAY ==
--- NOTE | ~2023-02-18 | XR_ITS ---
EXAMINATION: PORTABLE CHEST 1 VIEW CLINICAL INFORMATION: SOB, dyspnea. COMPARISON: 02/07/2022. TECHNIQUE: Portable frontal view of the chest was obtained. FINDINGS: The lungs are hyperinflated with chronic appearing changes at the lung bases likely due to scarring or atelectasis. No focal infiltrate, effusion, edema, or pneumothorax. Cardiac and mediastinal silhouettes are within normal limits for technique. No acute bony abnormality seen. XR/XR chest 1V IMPRESSION: Hyperinflated with chronic appearing changes but no acute superimposed airspace disease.
[2023-02-18 17:03] VITALS: BP 184/76; PULSE 96; O2SAT 94
[2023-02-18 17:20] VITALS: BP 187/71; PULSE 89; RESP 30; O2SAT 98; BMI 30.7
[2023-02-18 17:23] VITALS: TEMP 36.4
--- NOTE | 2023-02-18 17:34 | ECG_ITS ---
Test Reason : SOB Blood Pressure : / mmHG Vent. Rate : 106 BPM Atrial Rate : 106 BPM P-R Int : 224 ms QRS Dur : 144 ms QT Int : 336 ms P-R-T Axes : 093 014 052 degrees QTc Int : 446 ms Sinus tachycardia with 1st degree A-V block Right bundle branch block Abnormal ECG No significant changes when compared with the previous EKG of 12/10/2022 Referred By: Tj Napoles Electronically Signed By:KIM PEREZ
--- NOTE | 2023-02-18 17:39 | ED_ITS ---
HPI - General Adult General Chief complaint: Dyspnea Stated complaint: SOB, COUGH Time Seen by Provider: 02/18/23 17:07 Source: patient, family, EMS and interpreter and translator Mode of arrival: EMS Limitations: no limitations History of Present Illness HPI narrative: 82-year-old female history of asthma came in for evaluation of SOB, nonproductive cough, generalized weakness, fatigue, runny nose, and nasal congestion, no sick contacts, patient with known history of asthma used a bronchodilator at home with no relief of her symptoms. No CP, no lower extremity swelling or tenderness. Related Data Home Medications Medication Instructions Recorded Confirmed diltiazem HCl 360 mg capsule,24 360 mg PO DAILY 12/17/19 01/17/23 hr,extended release (Taztia XT) celecoxib 200 mg capsule 200 mg PO DAILY PRN Pain 02/27/20 01/17/23 pantoprazole 20 mg tablet,delayed 20 mg PO DAILY 06/18/20 01/17/23 release ferrous sulfate 325 mg (65 mg 65 mg PO DAILY 11/19/20 01/17/23 iron) tablet (FeroSul) nitroglycerin 0.4 % (w/w) rectal TX BEDTIME 06/14/21 03/07/22 ointment (Rectiv) amlodipine 10 mg tablet 10 mg PO DAILY 12/23/21 03/07/22 hydrochlorothiazide 25 mg tablet 25 mg PO QAM 03/07/22 01/17/23 losartan 100 mg tablet 100 mg PO DAILY 03/07/22 03/07/22 Oxygen Home Use 04/25/22 nebulizers 04/25/22 lorazepam 0.5 mg tablet 0.5 mg PO BID PRN Anxiety 10/31/22 01/17/23 olmesartan 40 mg tablet 40 mg PO DAILY 10/31/22 01/17/23 furosemide 20 mg tablet 20 mg PO QAM 01/18/23 01/18/23 Previous Rx's Medication Instructions Recorded ibuprofen 600 mg tablet 600 mg PO TID PRN pain #14 tabs 10/14/20 albuterol sulfate 2.5 mg/3 mL 2.5 mg (3 mL) inhalation Q4H PRN 02/15/22 (0.083 %) solution for nebulization for wheezing #75 mL Breo Ellipta 200 mcg-25 mcg/dose 1 ea inhalation DAILY #60 ea 06/07/22 powder for inhalation (fluticasone furoate-vilanterol) Ventolin HFA 90 mcg/actuation 2 puff PO QID PRN for wheezing #18 06/08/22 aerosol inhaler (albuterol sulfate) grams trazodone 50 mg tablet 50 mg PO BEDTIME #30 tabs 09/01/22 oxymetazoline 0.05 % nasal spray 2 spray intranasal Q12H PRN nasal 02/18/23 (Afrin (oxymetazoline)) congestion 3 days #22 mL prednisone 20 mg tablet 20 mg PO BID #10 tabs 02/18/23 Allergies Allergy/AdvReac Type Severity Reaction Status Date / Time amoxicillin [Augmentin] Allergy Severe Rash and Verified 12/15/22 15:12 Hives atorvastatin Allergy Severe Tachycardia Verified 12/15/22 15:12 clavulanic acid [Augmentin] Allergy Severe Rash and Verified 12/15/22 15:12 Hives nitrofurantoin [Macrobid] Allergy Severe Rash and Verified 12/15/22 15:12 Hives pravastatin Allergy Severe Rash and Verified 12/15/22 15:12 Hives lactose [LACTOSE] Allergy Mild DIARRHEA Verified 12/15/22 15:12 pollen Allergy Mild Rash Uncoded 12/15/22 15:12 Review of Systems 2 Review of Systems: All other systems are reviewed and are negative Constitutional: Reports as per HPI and Reports no additional constitutional complaints Eyes: Reports as per HPI and Reports no additional eye complaints Reports system reviewed and no additional complaints, except as documented Cardiovascular: Reports as per HPI and Reports no additional cardiovascular complaints Respiratory: Reports as per HPI and Reports no additional respiratory complaints Gastrointestinal: Reports as per HPI and Reports no additional gastrointestinal complaints Genitourinary: Reports no additional female genitourinary complaints Musculoskeletal: Reports no additional musculoskeletal complaints Skin/Breast: Reports system reviewed and no additional complaints, except as docu Psychiatric: Reports no additional psychiatric complaints Endocrine: Reports no additional endocrine complaints Hematologic/Lymphatic: Reports no additional hematologic/lymphatic complaints Allergic/Immunologic: Reports no additional allergic/immunologic complaints Reports system reviewed and no additional complaints, except as documented and Reports Abnormal speech present [facility] Past Medical History Medical History COVID-19 RBBB (right bundle branch block) HTN (hypertension) Acid reflux Nocturnal hypoxia Chronic allergic rhinitis Asthma-COPD overlap syndrome Bronchiectasis Asthma Chronic obstructive pulmonary disease Renal artery atherosclerosis Venous insufficiency Surgical History H/O colonoscopy Hx of breast biopsy Hx of hysterectomy Hx of appendectomy Hx of cholecystectomy Social History Social History Housing Other:: senior housing Are you a primary md do resident urgent care to a significant other at home: No 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) Alcohol intake: never Patient Tobacco Use Status: Never used Tobacco Smoked in Last 30 Days: No Use of substances other than those prescribed or required for medical reasons: No Advance Directives: Yes Advance Directives on File: Yes Advance Directives Date on File: 12/30/21 Physical Exam ED Vital Signs: Vital Signs - 24 hr 02/18/23 17:20 02/18/23 17:23 02/18/23 17:57 Temperature 97.6 F Pulse Rate 89 88 Respiratory Rate 30 H 22 H Blood Pressure 187/71 H Pulse Oximetry 98 Oxygen Delivery Method Room Air 02/18/23 21:30 Temperature 98.0 F Pulse Rate 103 H Respiratory Rate 22 H Blood Pressure 167/52 H Pulse Oximetry 96 Oxygen Delivery Method Room Air BMI result Body Mass Index 30.7 Vital signs have been reviewed and appear to be correct. Blood pressure elevated. Heart rate normal. Respiratory rate normal. Temperature normal. Oxygen saturation normal. Appearance: Alert. Oriented X3. No acute distress. Head: Normal external exam. Normocephalic. Atraumatic. No Doran signs noted. No raccoon eyes noted Eyes: PERRLA. EOMI. Conjunctiva and sclera normal. Eyelids normal. ENT: TM's Normal. Pharynx normal. Uvula midline. Moist mucous membranes. No trismus noted. No drooling noted. No muffled voice noted. Neck: Normal inspection. Neck supple. FROM. No adenopathy. Thyroid Normal. No meningeal signs. No neck mass noted. CVS: Normal heart rate and rhythm. Heart sound normal. No murmurs noted. Pulses normal throughout. Respiratory: No respiratory distress. Painless inspiration. Breath sounds decreased bilaterally, Diffuse expiratory wheezing with prolonged expiration Chest nontender. No accessory muscle usage noted or decreased air movement noted. Abdomen: Soft and nontender. Bowel sounds normal in all 4 quadrants. No distention noted. No organomegaly noted. No visible injury noted. Back: No CVA tenderness. Full range of motion noted. Skin: Skin warm and dry. Normal skin color. Normal skin turgor. No rashes/lesions/lacerations noted. Extremities: No lower extremity edema. Extremities exhibit normal range of motion. Extremities nontender. Neuro: Oriented X 3. Cranial nerve exam: II-XII are grossly intact No motor deficit. No sensory deficit. Reflexes normal. Course Reevaluation(s) Reevaluation #1: Received bronchodilator and prednisone in the emergency department patient feels better, no respiratory distress or difficulty, no infection or pneumonia, patient would like to go home tonight will start the patient on 5 days course of prednisone and Afrin. Time: 22:50 Medications Administered Discontinued Medications Generic Name Dose Route Start Last Admin Trade Name Freq PRN Reason Stop Dose Admin Albuterol Sulfate 7.5 mg 02/18/23 17:34 02/18/23 17:54 Albuterol Sulfate (0.083%) 2.5 Mg/3 Ml Vial.Neb INHALE 02/18/23 17:35 7.5 mg ONCE ONE Administration Albuterol/Ipratropium 3 ml 02/18/23 17:34 02/18/23 17:54 Albuterol/Iprat 2.5/0.5mg 3 Ml Ampul.Neb INHALE 02/18/23 17:35 3 ml ONCE ONE Administration Magnesium Sulfate 2 gm in 50 mls @ 25 mls/hr 02/18/23 17:34 02/18/23 18:00 Magnesium Sulfate/H2o IV 02/18/23 19:33 25 mls/hr ONCE ONE Administration Methylprednisolone Sodium Succinate 125 mg 02/18/23 17:34 02/18/23 18:01 Methylprednisolone Sod Succ 125 Mg/2 Ml Vial IVPUSH 02/18/23 17:35 125 mg ONCE ONE Administration Medical Decision Making Differential Diagnosis Differential Diagnoses: The differential diagnosis associated with the presentation includes (Pneumonia, pneumothorax, pleural effusion, CHF, viral bronchitis, asthma exacerbation, ACS, electrolyte abnormality, severe anemia.) Admission/Observation Consideration of admission/observation: Escalation of care including admission/observation considered Lab Data MDM Lab Attestation statement: I reviewed the patient's lab results. 02/18/23 18:00 02/18/23 18:00 Labs: Lab Results 02/18/23 02/18/23 Range/Units 18:00 18:45 WBC 8.6 (4.8-10.8) X10*3/uL RBC 4.22 (4.20-5.50) X10*6/uL Hgb 13.0 (12.0-16.0) g/dl Hct 37.1 (37.0-47.0) % MCV 87.9 (80.0-98.0) fL MCH 30.8 (27.0-33.0) pg MCHC 35.0 (31.0-35.0) g/dl RDW 12.7 (11.0-16.0) % Plt Count 351 (160-400) X10*3/uL MPV 8.8 L (9.4-12.3) fL Immature Gran % (Auto) 0.7 H (0.0-0.4) % Neut % (Auto) 64.8 (45-73) % Lymph % (Auto) 23.7 (20-40) % [place] % (Auto) 6.1 (2-11) % Eos % (Auto) 4.0 (0-4) % Baso % (Auto) 0.7 (0-2) % Lymph # (Auto) 2.0 (1.2-4.9) X10*3/uL [place] # (Auto) 0.5 (0.1-1.2) X10*3/uL Eos # (Auto) 0.3 (0.0-0.4) X10*3/uL Baso # (Auto) 0.1 (0.0-0.2) X10*3/uL Abs Immat Gran (auto) 0.06 H (0.00-0.03) X10*3/uL Absolute Neuts (auto) 5.6 (2.0-8.3) x10*3/uL Absolute Nucleated RBC 0.000 (0.0-0.012) X10*3/uL Nucleated RBC % (auto) 0.0 (0.0-0.2) /100WBC Sodium 139 (135-145) mmol/L Potassium 3.5 (3.3-5.1) mmol/L Chloride 105 (96-108) mmol/L Carbon Dioxide 22 (22-29) mmol/L Anion Gap 16 (12-20) BUN 15 (9-16) mg/dL Creatinine 0.80 (0.5-1.4) mg/dL Estim Creat Clear Calc 50.0 Estimated GFR > 60 Random Glucose 90 (60-115) mg/dL Calcium 9.4 (8.4-10.2) mg/dL Total Bilirubin 0.3 (0.0-1.0) mg/dL Direct Bilirubin 0.1 (0.0-0.5) mg/dL AST 14 (5-31) U/L ALT 9 (0-31) U/L Alkaline Phosphatase 88 (39-117) U/L Troponin I High Sens 9.7 (<3.5-17.0) ng/L B-Natriuretic Peptide 40 (<100) pg/mL Total Protein 7.1 (6.5-8.0) g/dL Albumin 4.0 (3.5-5.0) g/dL Lipase 17 (8-78) U/L Urine Color Yellow Urine Appearance Clear Urine pH 8.5 (5.0-9.0) Ur Specific [place] 1.010 (1.005-1.025) Urine Protein Negative (Neg-Trace) mg/dL Urine Glucose (UA) Negative (Negative) mg/dL Urine Ketones Negative (Negative) mg/dL Urine Blood Negative (Negative) Urine Nitrite Negative (Negative) Ur Leukocyte Esterase Negative (Negative) Influenza Type A (PCR) NEGATIVE (Negative) Influenza Type B (PCR) NEGATIVE (Negative) RSV RNA Qual (PCR) NEGATIVE (Negative) SARS-CoV-2 RNA (RT-PCR) NEGATIVE (Negative) Independent Interpretation I performed an independent interpretation of an: Plain X-Ray (Chest:Hyperinflated with chronic appearing changes but no acute superimposed airspace disease. ) Radiology Impression Discussion of test interpretation with radiology: I have reviewed the radiologist's reading. Discharge Plan Discharge Clinical Impression: Asthma exacerbation Patient Disposition: Home, Self-Care Instructions: Asthma (ED) Prescriptions: New oxymetazoline [Afrin (oxymetazoline)] 0.05 % spray,non-aerosol 2 spray intranasal Q12H PRN (Reason: nasal congestion) 3 Days Qty: 22 0RF prednisone 20 mg tablet 20 mg PO BID Qty: 10 0RF No Action albuterol sulfate 2.5 mg /3 mL (0.083 %) solution for nebulization 2.5 mg inhalation Q4H PRN (Reason: for wheezing) Qty: 75 11RF Breo Ellipta 200-25 mcg/dose blister with device 1 ea inhalation DAILY Qty: 60 11RF albuterol sulfate [Ventolin HFA] 90 mcg/actuation HFA aerosol inhaler 2 puff PO QID PRN (Reason: for wheezing) Qty: 18 11RF trazodone 50 mg tablet 50 mg PO BEDTIME Qty: 30 11RF ibuprofen 600 mg tablet 600 mg PO TID PRN (Reason: pain) Qty: 14 0RF losartan 100 mg tablet 100 mg PO DAILY furosemide 20 mg tablet 20 mg PO QAM celecoxib 200 mg capsule 200 mg PO DAILY PRN (Reason: Pain) diltiazem HCl [Taztia XT] 360 mg capsule,extended release 24 hr 360 mg PO DAILY pantoprazole 20 mg tablet,delayed release (DR/EC) 20 mg PO DAILY ferrous sulfate [FeroSul] 325 mg (65 mg iron) tablet 65 mg PO DAILY Rectiv 0.4 % (w/w) ointment TX BEDTIME amlodipine 10 mg tablet 10 mg PO DAILY (DME) nebulizers Misc See Rx Instructions .ROUTE Rx Instructions: As directed (DME) Oxygen Home Use Kit See Rx Instructions .ROUTE Rx Instructions: As directed hydrochlorothiazide 25 mg tablet 25 mg PO QAM olmesartan 40 mg tablet 40 mg PO DAILY lorazepam 0.5 mg tablet 0.5 mg PO BID PRN (Reason: Anxiety) Referrals: Name,MD Rohit [Primary Care Provider] -
[2023-02-18] MEDS: Albuterol/Iprat 2.5/0.5MG 3 ML AMPUL.NEB INHALE (17:54)
[2023-02-18] MEDS: Albuterol Sulfate (0.083%) 2.5 MG/3 ML VIAL.NEB 7.5 MG INHALE (17:54)
[2023-02-18 17:57] VITALS: PULSE 88; RESP 22; O2SAT 99
[2023-02-18] MEDS: Magnesium Sulfate/H2O 2 GM/50 ML PIGGYBACK IV (18:00)
[2023-02-18] MEDS: methylPREDNISolone Sod Succ 125 MG/2 ML VIAL IVPUSH (18:01)
[2023-02-18 18:09] LABS: MANUAL DIFF FLAG NO
[2023-02-18 18:23] LABS: Basophils Absolute Auto 0.1 X10*3/uL (0.0-0.2); Basophils Percent Auto 0.7 % (0-2); Eosinophils Absolute Auto 0.3 X10*3/uL (0.0-0.4); Hematocrit 37.1 % (37.0-47.0); Imm Gran Abs Auto 0.06 X10*3/uL (0.00-0.03); Imm Gran Pct Auto 0.7 % (0.0-0.4); Lymphocytes Percent Auto 23.7 % (20-40); Mean Corpuscular Hemoglobin 30.8 pg (27.0-33.0); Mean Corpuscular Volume 87.9 fL (80.0-98.0); Mean Platelet Volume 8.8 fL (9.4-12.3); Monocytes Absolute Auto 0.5 X10*3/uL (0.1-1.2); Monocytes Percent Auto 6.1 % (2-11); Neutrophils Absolute Auto 5.6 x10*3/uL (2.0-8.3); Neutrophils Percent Auto 64.8 % (45-73); Platelet Count 351 X10*3/uL (160-400); Red Blood Count 4.22 X10*6/uL (4.20-5.50); Red Cell Distribution Width 12.7 % (11.0-16.0); White Blood Count 8.6 X10*3/uL (4.8-10.8)
[2023-02-18 18:28] LABS: Alanine Aminotransferase 9 U/L (0-31); Alkaline Phosphatase 88 U/L (39-117); Anion Gap 16 (12-20); Aspartate Amino Transferase 14 U/L (5-31); Bilirubin Direct 0.1 mg/dL (0.0-0.5); Bilirubin Total 0.3 mg/dL (0.0-1.0); Blood Urea Nitrogen 15 mg/dL (9-16); Calcium 9.4 mg/dL (8.4-10.2); Carbon Dioxide 22 mmol/L (22-29); Chloride 105 mmol/L (96-108); Estimated Glomerular Filt Rate > 60; Glucose Random 90 mg/dL (60-115); Lipase 17 U/L (8-78); Potassium 3.5 mmol/L (3.3-5.1); Sodium 139 mmol/L (135-145); Total Protein 7.1 g/dL (6.5-8.0)
[2023-02-18 18:30] LABS: B Type Natriuretic Peptide 40 pg/mL (<100)
[2023-02-18 18:31] LABS: Troponin-I High Sensitivity 9.7 ng/L (<3.5-17.0)
[2023-02-18 18:47] LABS: Influenza A PCR NEGATIVE (Negative); Influenza B PCR NEGATIVE (Negative); Resp Syncy Virus RNA Qual PCR NEGATIVE (Negative); SARS COV2 PCR INHOUSE NEGATIVE (Negative)
[2023-02-18 19:09] LABS: Appearance Urine Clear; Color Urine Yellow; Glucose Urine UA Negative (Negative); Leukocyte Esterase Urine Negative (Negative); Nitrite Urine Negative (Negative); PH 8.5 (5.0-9.0); Urine Blood Negative (Negative); Urine Ketones Negative (Negative); Urine Protein Negative (Neg-Trace)
[2023-02-18 21:30] VITALS: BP 167/52; PULSE 103; RESP 22; TEMP 36.7; O2SAT 96
== END 2023-02-18 23:45 | disposition home or self-care (01) ==
PROVIDERS: Emergency Provider Emergency Medicine; PCP Internal Medicine Geriatric Medicine
DX: J45.901 Unspecified asthma with (acute) exacerbation (principal); R06.02 Shortness of breath; R05.9 Cough, unspecified; R00.0 Tachycardia, unspecified; Z20.822 Contact with and (suspected) exposure to COVID-19; Z20.828 Contact with and (suspected) exposure to other viral communicable diseases; Z79.899 Other long term (current) drug therapy
CPT/HCPCS: 0241U; 36415; 71045; 80048; 80076; 81003; 83690; 83880; 84484; 85025; 93005; 94640; 96374; 96375; 99285; J2930; J3475

== ENCOUNTER → 2023-02-18 17:34 | Outpatient (BNV) | payer OTHER, SELFPAY | PROVIDERS: Emergency Provider Emergency Medicine; PCP Internal Medicine Geriatric Medicine; Visit Provider Internal Medicine | DX: R06.02 Shortness of breath (principal) | CPT/HCPCS: 93010 ==

== ENCOUNTER 2023-03-03 18:00 | Emergency (ER) | payer OTHER, SELFPAY ==
[2023-03-03 18:21] VITALS: BP 172/61; PULSE 76; RESP 16; TEMP 36.4; O2SAT 99; BMI 28.0
--- NOTE | 2023-03-03 20:45 | ED.BACK ---
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 Patient is voicing frustration about having to wait in the waiting room. Related Data Home Medications Medication Instructions Recorded Confirmed diltiazem HCl 360 mg capsule,24 360 mg PO DAILY 12/17/19 01/17/23 hr,extended release (Taztia XT) celecoxib 200 mg capsule 200 mg PO DAILY PRN Pain 02/27/20 01/17/23 pantoprazole 20 mg tablet,delayed 20 mg PO DAILY 06/18/20 01/17/23 release ferrous sulfate 325 mg (65 mg 65 mg PO DAILY 11/19/20 01/17/23 iron) tablet (FeroSul) nitroglycerin 0.4 % (w/w) rectal IN BEDTIME 06/14/21 03/07/22 ointment (Rectiv) amlodipine 10 mg tablet 10 mg PO DAILY 12/23/21 03/07/22 hydrochlorothiazide 25 mg tablet 25 mg PO QAM 03/07/22 01/17/23 losartan 100 mg tablet 100 mg PO DAILY 03/07/22 03/07/22 Oxygen Home Use 04/25/22 nebulizers 04/25/22 lorazepam 0.5 mg tablet 0.5 mg PO BID PRN Anxiety 10/31/22 01/17/23 olmesartan 40 mg tablet 40 mg PO DAILY 10/31/22 01/17/23 furosemide 20 mg tablet 20 mg PO QAM 01/18/23 01/18/23 Previous Rx's Medication Instructions Recorded ibuprofen 600 mg tablet 600 mg PO TID PRN pain #14 tabs 10/14/20 albuterol sulfate 2.5 mg/3 mL 2.5 mg (3 mL) inhalation Q4H PRN 02/15/22 (0.083 %) solution for nebulization for wheezing #75 mL Breo Ellipta 200 mcg-25 mcg/dose 1 ea inhalation DAILY #60 ea 06/07/22 powder for inhalation (fluticasone furoate-vilanterol) Ventolin HFA 90 mcg/actuation 2 puff PO QID PRN for wheezing #18 06/08/22 aerosol inhaler (albuterol sulfate) grams trazodone 50 mg tablet 50 mg PO BEDTIME #30 tabs 09/01/22 oxymetazoline 0.05 % nasal spray 2 spray intranasal Q12H PRN nasal 02/18/23 (Afrin (oxymetazoline)) congestion 3 days #22 mL prednisone 20 mg tablet 20 mg PO BID #10 tabs 02/18/23 Allergies Allergy/AdvReac Type Severity Reaction Status Date / Time amoxicillin [Augmentin] Allergy Severe Rash and Verified 12/15/22 15:12 Hives atorvastatin Allergy Severe Tachycardia Verified 12/15/22 15:12 clavulanic acid [Augmentin] Allergy Severe Rash and Verified 12/15/22 15:12 Hives nitrofurantoin [Macrobid] Allergy Severe Rash and Verified 12/15/22 15:12 Hives pravastatin Allergy Severe Rash and Verified 12/15/22 15:12 Hives lactose [LACTOSE] Allergy Mild DIARRHEA Verified 12/15/22 15:12 pollen Allergy Mild Rash Uncoded 12/15/22 15:12 Review of Systems Review of Systems: Pertinent positives and negatives as stated in [facility] Past Medical History Source: nursing notes reviewed Onset Date is defined in the Problem List Problems that require an onset date and time if occurred within 24 hrs of arrival to the ED Aortic Dissection and Rupture; Neurologic impairment; Cardiopulmonary Arrest; Endotracheal Intubation; Insertion or Replacement of Mechanical Circulatory Assist Device Medical History COVID-19 RBBB (right bundle branch block) HTN (hypertension) Acid reflux Nocturnal hypoxia Chronic allergic rhinitis Asthma-COPD overlap syndrome Bronchiectasis Asthma Chronic obstructive pulmonary disease Renal artery atherosclerosis Venous insufficiency Surgical History H/O colonoscopy Hx of breast biopsy Hx of hysterectomy Hx of appendectomy Hx of cholecystectomy Social History Social History Housing Other:: senior housing Are you a primary care team coordinator scheduler to a significant other at home: No Do you presently have 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 GENERAL: Well developed, well nourished, in no acute distress. HEAD: Normocephalic/atraumatic EYES: PERRLA, EOMI LUNGS: Normal breath sounds. No adventitious sounds or accessory muscle use. SpO2<99> CARDIOVASCULAR: Regular rate and rhythm without noted murmurs, no JVD or lower extremity edema. ABDOMEN: Soft, non-tender, non-distended with bowel sounds. MUSCULOSKELETAL: No tenderness, deformities, or effusions noted on gross inspection. EXTREMITIES: No cyanosis, clubbing or edema. SKIN: Inspection of the skin reveals no rashes NEUROLOGIC: Alert and oriented x 4. Strength and sensation to light touch were grossly intact x 4. Medical Decision Making Medical Decision Making MDM Narrative: 82-year-old female with history and clinical presentation consistent with acute on chronic back pain and sciatica there are no red flag symptoms, no concerns for cauda equina or acute cord compression. Patient received combination analgesics as well as lidocaine patch and then was discharged home in stable condition Differential Diagnosis Differential Diagnoses: The differential diagnosis associated with the presentation includes Please see the discussion Admission/Observation Consideration of admission/observation: Escalation of care including admission/observation considered I see the discussion above External Record Review External record reviewed: Outpatient record and Prior outpatient labs Discharge Plan Discharge Clinical Impression: Acute exacerbation of chronic low back pain Patient Disposition: Home, Self-Care Instructions: Back Pain (ED) Additional Instructions: 1. Tylenol 1000 mg, por v?a oral, cada 6 horas seg?n sea necesario para controlar el dolor. No exceda los 4000 mg en 24 horas. 2. Ibuprofeno 400 mg, por v?a oral con leche o comida, cada 6 horas seg?n sea necesario para controlar el dolor. Le recomiendo que tome esto con Tylenol para mejorar el alivio de los s?ntomas. 3. Parche de lidoca?na, apl?quelo en el ?juli de m?xima sensibilidad romi se indica en el paquete exterior. 4. Juan un seguimiento con landeros m?dico de atenci?n primaria en los pr?ximos 1 o 2 d?as. Regrese a la kevyn de emergencias si los s?ntomas empeoran. 1. Tylenol 1000 mg, orally, every 6 hours as needed for pain control. Do not exceed 4000 mg within 24 hours 2. Ibuprofen 400 mg, orally with milk or food, every 6 hours as needed for pain control. I recommend that you take this with Tylenol for improved symptom relief. 3. Lidocaine patch, apply to area of maximal tenderness as directed on the outside packaging. 4. Follow-up with your primary care doctor in the next 1-2 days. Return to the ER for any worsening symptoms. Prescriptions: No Action albuterol sulfate 2.5 mg /3 mL (0.083 %) solution for nebulization 2.5 mg inhalation Q4H PRN (Reason: for wheezing) Qty: 75 11RF Breo Ellipta 200-25 mcg/dose blister with device 1 ea inhalation DAILY Qty: 60 11RF albuterol sulfate [Ventolin HFA] 90 mcg/actuation HFA aerosol inhaler 2 puff PO QID PRN (Reason: for wheezing) Qty: 18 11RF trazodone 50 mg tablet 50 mg PO BEDTIME Qty: 30 11RF ibuprofen 600 mg tablet 600 mg PO TID PRN (Reason: pain) Qty: 14 0RF losartan 100 mg tablet 100 mg PO DAILY oxymetazoline [Afrin (oxymetazoline)] 0.05 % spray,non-aerosol 2 spray intranasal Q12H PRN (Reason: nasal congestion) 3 Days Qty: 22 0RF prednisone 20 mg tablet 20 mg PO BID Qty: 10 0RF furosemide 20 mg tablet 20 mg PO QAM celecoxib 200 mg capsule 200 mg PO DAILY PRN (Reason: Pain) diltiazem HCl [Taztia XT] 360 mg capsule,extended release 24 hr 360 mg PO DAILY pantoprazole 20 mg tablet,delayed release (DR/EC) 20 mg PO DAILY ferrous sulfate [FeroSul] 325 mg (65 mg iron) tablet 65 mg PO DAILY Rectiv 0.4 % (w/w) ointment IN BEDTIME amlodipine 10 mg tablet 10 mg PO DAILY (DME) nebulizers Misc See Rx Instructions .ROUTE Rx Instructions: As directed (DME) Oxygen Home Use Kit See Rx Instructions .ROUTE Rx Instructions: As directed hydrochlorothiazide 25 mg tablet 25 mg PO QAM olmesartan 40 mg tablet 40 mg PO DAILY lorazepam 0.5 mg tablet 0.5 mg PO BID PRN (Reason: Anxiety) Referrals: Name,MD Rohit [Physician] - Print Language: Hungarian
[2023-03-03] MEDS: Lidocaine 4 % Patch ADH..PATCH 1 PATCH TRANSDERMA (21:08)
[2023-03-03] MEDS: Acetaminophen 325 MG TABLET 975 MG PO (21:08)
[2023-03-03] MEDS: Ibuprofen 400 MG TABLET PO (21:09)
== END 2023-03-03 21:17 | disposition home or self-care (01) ==
PROVIDERS: Emergency Provider Student in an Organized Health Care Education/Training Program
DX: M54.50 Low back pain, unspecified (principal); Z79.899 Other long term (current) drug therapy
CPT/HCPCS: 99283; 99284

== ENCOUNTER 2023-03-23 13:22 | Outpatient (REF) | payer OTHER, SELFPAY ==
--- NOTE | ~2023-03-23 | US_ITS ---
EXAMINATION: US VENOUS ULTRASOUND WITH DOPPLER LOWER EXTREMITY, RIGHT CLINICAL INFORMATION: Right leg swelling COMPARISON: None available. TECHNIQUE: Ultrasound of the deep veins is performed from the hip to the calf with compression sonography and color and pulse Doppler assessment. Spectral analysis with color-flow imaging is performed. FINDINGS: There is normal venous compression and respiratory variation. The visualized common femoral vein, superficial femoral vein, profunda femoral vein and popliteal vein shows no evidence of deep venous thrombosis. There are extremely limited views of the calf veins. US/US venous duplex LE RT IMPRESSION: No DVT demonstrated in the right lower extremity. Extremely limited views of the calf veins.
== END 2023-03-23 13:23 | disposition home or self-care (01) ==
LOC: HO.US 13:22
PROVIDERS: Visit Provider Internal Medicine Geriatric Medicine
DX: R53.81 Other malaise (principal); R53.83 Other fatigue; M79.89 Other specified soft tissue disorders
CPT/HCPCS: 93971

== ENCOUNTER 2023-03-24 13:52 | Outpatient (AMB) | payer OTHER, SELFPAY ==
[2023-03-24 14:03] VITALS: PULSE 63; O2SAT 94; BMI 27.4
--- NOTE | 2023-03-24 14:03 | MHC.OFFVIS ---
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 Allergies amoxicillin [Augmentin] Allergy (Severe, Verified 03/24/23 14:04) Rash and Hives atorvastatin Allergy (Severe, Verified 03/24/23 14:04) Tachycardia clavulanic acid [Augmentin] Allergy (Severe, Verified 03/24/23 14:04) Rash and Hives nitrofurantoin [Macrobid] Allergy (Severe, Verified 03/24/23 14:04) Rash and Hives pravastatin Allergy (Severe, Verified 03/24/23 14:04) Rash and Hives lactose [LACTOSE] Allergy (Mild, Verified 03/24/23 14:04) DIARRHEA pollen Allergy (Mild, Uncoded 03/24/23 14:04) Rash HPI HPI Comments History of Present Illness Details The patient is an 82 year old woman with a history of COPD in addition to bronchiectatic changes with 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 She describes worsening dyspnea on exertion. Moderate in severity. Sometimes when she is on the phone or even eating she gets short of breath. She has also been coughing which has been usually nonproductive. She has been using long respiratory therapy without any significant improvement. She also describes left-sided chest discomfort. At this point she does not have it. The discomfort usually radiates to the back. She has not had a cardiac workup in a while. She had an EKG from 2014 from [facility] that I was able to review with some conduction abnormalities. She also underwent a bronchoscopy back in August of 2017 with cultures positive for Pseudomonas. At this point would consider treating night to see if she has any improvement of her symptoms. We had to pulmonary function studies and her FEV1 was only 1.4 L. will fill out her placard for for handicapped parking. Otherwise the patient is without any other complaints period . We did review the use of the flutter valve. 11/15/2019 The patient is here for pulmonary follow-up visit. Overall she is doing a lot better when compared to her last visit. She required high doses of prednisone and also antibiotics. Her cough is better her wheezing is improved. She still has a barky cough due to some degree of tracheomalacia. She continues to very aggressive respiratory regimen. Her symptoms are still present. At this point will do allergy testing to see if she has a candidate for any biologic therapy. She did have elevated eosinophilia and maybe respond well to Biologic therapy. But first we will optimize her respiratory therapy. 02/26/2019 the patient is here for pulmonary follow-up visit. Overall the patient is doing very well with the medication changes. She required prednisone. She is not requiring her nebulizer. She is responding very well to the to the trelegy inhaler. She continues to have good response to the Daliresp. Clear to keep her on the lower dose. We had increased her azithromycin to the 500 mg she seems to be tolerating that well. She needs to have serial EKGs to make sure that he maintains within normal limits. 06/18/2020 The patient is here for a follow up visit. Overall doing well. She has a cough, mild to moderate in severity. Complaining of dyspnea on exertion, mild in severity. Her PFTs do demonstrate COPD. She has been responding well to the current respiratory therapy. The patient is interested in participating in pulmonary rehabilitation. 06/29/2020 the patient is here for sick visit. She started developing worsening shortness of breath and chest tightness the last couple days. She has been getting worse. Denies any fevers or chills. She does have a cough. Denies any exposure to anybody with COVID-19. In the meantime she has been using her nebulizer every 3-4 hours with some partial improvement of her symptoms. In the office she was having some coughing and increasing wheezing. Therefore she was given a nebulized therapy and she was also given Solu-Medrol. The patient's pulse ox was reassuring. Will have her get some blood work before she goes home. If the patient is condition does not respond to the outpatient therapy the patient needs to go to the ER seek further medical advice. 11/19/2020 the patient is here for a pulmonary follow-up visit. Overall she is feeling better from a respiratory status. She did require prednisone and antibiotics during the last evaluation back in June. More recently than that she did have a fall while she was in her home and she complaint of significant pain at the level of the coccyx. She was evaluated in the ED which she was found to have a small fracture. Currently she is feeling a lot better. Denies any significant discomfort. She continues with respiratory therapy. Denies any significant cough or wheezing. She does have her baseline shortness of breath with activity which is [id number] severity. At this point will continue with current respiratory regimen. also to note she stop the Trelegy inhaler and she has been on the Breo and appears to be better for her she is tolerating it well. 04/13/2021 the patient is here for sick visit. Apparently she has been getting worsening shortness of breath now for the last 2-3 days. She feels like she has a hard time taking a breath in due to discomfort primarily on the left side of the chest area. Has been very winded with minimal activity. Has been also coughing more. She has been using her nebulizer more often. She did receive the COVID vaccines in addition to the booster. However, she did not test for COVID-19. Will make sure with test her today. In the meantime on examination she does not have significant wheezing or rhonchi. She did give herself a treatment prior to her arrival. She also has been somewhat tremulous. We did take a briefly for a walking test and she maintain a pulse ox of 98% with activity which is reassuring. She does not have any chest discomfort at this time. However, she does look fatigued and sickly appearing therefore I am concerned about the patient. I will have her get an x-ray in addition to blood work And her COVID-19 antigen testing. 06/14/2021 the patient is here for a pulmonary follow-up visit. She did recover from her last illness. She was tested for COVID which was negative. The patient continues to take all the precautions necessary. She responded well to the Daliresp therapy. She was able to also lose weight which is been Reassuring. She continues to have a hard time sleeping at nighttime. She does not use any sleep aids. She does wake up tired. She have daytime drowsiness and headaches in the morning. The patient may benefit from oxygen supplementation at nighttime. Will go ahead and perform an overnight oximetry at this time. In the meantime she is willing to try trazodone to see if she can have better sleep hygiene. She will continue with current respiratory regimen at this time. 12/23/2021 the patient is here for pulmonary follow-up visit. Overall she is doing very well from a respiratory status. Denies any significant cough or chest congestion. Recently, however, the patient developed severe headaches and she had elevated blood pressures. she was taken to the [facility] ED which she was evaluated for hypertensive urgency. that ER visit she had blood work which was reassuring. The ED demonstrated a 1st degree AV block in addition to a right bundle branch block. The patient also had a QTC that was 516. the patient has a very abnormal EKG when therefore needs to see Cardiology. Since most of the records are already. Will go ahead and refer her to 1 of our cardiologists. Meantime she has been on azithromycin 3 times a week. In view of the elevated QTC and the conduction abnormalities will go ahead and stop that medication at this time. She will continue with the rest of the medications. She is going to monitor her respiratory symptoms while coming off the macrolide suppression therapy. In addition to that the patient has been noticing some weight loss. I will make sure that she has an x-ray on record. 04/25/2022 the patient is here for a pulmonary follow-up visit. The patient has been better from a respiratory status. She continues on the Breo. She stop the Daliresp. She was having significant amount of weight loss and also her insurance would not cover any longer. Her major issue is significant blood pressure issues. She did go to the ER with hypertensive urgency. The patient also was given additional blood pressure medications. Now she is having significant lower extremity edema likely from the CT scan gentle mando. She will be seen her primary care doctor tomorrow. The patient also was seen by Cardiology in awaiting a cardiac evaluation. She did have an abnormal EKG during the last visit. Her QTC was prolonged therefore the patient is no longer on macrolide therapy. Clinically the patient is doing well she does not need that therapy at this time which is reassuring. We did review her last chest x-ray that was back in January 2022 with some degree of atelectasis but otherwise her lungs appear to be clear. 10/31/2022 the patient is here for pulmonary follow-up visit. The patient has been noticing worsening dyspnea on exertion for the last few days. She states that is primarily because she has not been able to use a nebulizer. She has nebulizer supplies but they are more than 3-month-old she was concerned about using it. I did reassure them that is when she washes in well which she does she can using for longer period time. In the meantime she can call the [facility] in request for refills. The patient has been using her inhalers with good effect. She did have an echocardiogram from the heart demonstrating normal ejection fraction although she does have what appears to be some diastolic dysfunction. Otherwise patient is doing well. She will get a Prevnar 20 vaccine today. She also consider getting the RSV in the flu shot when available. 03/24/2023 the patient is here for a pulmonary follow-up visit. She continues to have dyspnea on exertion. Also complaining of chest tightness and wheezing intermittently. moderate in severity. Typically using her rescue inhaler 2 to 3 times a week. The patient has been on Breo. Will go ahead and optimize respiratory therapy switching over to Trelegy. She continues use her oxygen at nighttime. She has been on 2 L at night with good response. The therapy has been affecting beneficial. We did review her last chest x-ray from January 2023 demonstrating just hyperinflated lungs consistent with COPD. In addition to that the patient also had a lower extremity Doppler ruling out DVT. Though she was treated for cellulitis.. At this point will maximize her respiratory therapy follow-up in 6 months. 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) Alcohol intake: never Patient Tobacco Use Status: Never used Tobacco Advance Directives Date on File: 12/30/21 Review of Systems Const Denies fever(s), Denies night sweats and Reports weight loss ENT Denies change in voice, Denies lip swelling, Denies mouth pain, Reports nasal congestion, Reports nasal discharge and Denies tongue swelling Card Denies chest pain, Reports leg edema, Denies dyspnea and Reports dyspnea on exertion Resp Reports cough, Denies excessive phlegm production, Denies pain on inspiration, Reports pain with cough, Denies dyspnea, Reports dyspnea on exertion and Denies wheezing GI Denies abdominal pain Musc Denies no additional complaints Neuro Denies Neuro-related abnormal movements Psych Denies no additional complaints Skyler/Lymph Denies easy bleeding and Denies lymphadenopathy Aller/Immun Denies lip swelling, Denies tongue swelling and Denies wheezing Physical Exam Vital Signs: Last Vital Signs Pulse 63 03/24/23 14:03 Pulse Ox 94 03/24/23 14:03 Oxygen Delivery Method Room Air 03/24/23 14:03 BMI result Body Mass Index 27.4 Const General: comfortable and alert Neck Neck: Yes normal visual inspection, Yes full ROM and Yes no lymphadenopathy Chest Chest palpation & inspection: normal inspection of the chest Resp Effort & Inspection: normal respiratory effort Auscultation: no crackles, no rales, wheezes and diminished lung sounds Cardio Rate: regular rate Rhythm: regular rhythm Heart sounds: S1 normal heart sound present and S2 normal heart sound present GI Palpation (GI): Soft to palpation and nontender Auscultation: normal bowel sounds Skin General skin exam: rashes and/or lesions noted Extrem General: No clubbing, No cyanosis and Yes edema Assessment & Plan Assessment & Plan (1) Asthma-COPD overlap syndrome: Code(s): J44.9 - Chronic obstructive pulmonary disease, unspecified (2) Chronic allergic rhinitis: Code(s): J30.9 - Allergic rhinitis, unspecified (3) Bronchiectasis: Code(s): J47.9 - Bronchiectasis, uncomplicated Qualifiers: Bronchiectasis type: uncomplicated Qualified Code(s): J47.9 - Bronchiectasis, uncomplicated Plan stop Breo daily Start Trelegy 200 daily GRETCHEN as needed continue trazodone for sleep, 1 tablet continue 2L oxygen at night follow-up in 6 months Medications: New yahddhlzoit-xprltusor-okxkdnon 200-62.5-25 mcg (Trelegy Ellipta) 1 inh inhalation DAILY 60 ea 12RF 30 days Coding Level of Care Code Est Pt Level 4 (86681) Diagnoses Asthma-COPD overlap syndrome J44.9 Chronic allergic rhinitis J30.9 Bronchiectasis without complication J47.9 Bronchiectasis type: uncomplicated Time Spent (min) 17
== END 2023-03-24 14:16 | disposition home or self-care (01) ==
PROVIDERS: Visit Provider Hospitalist
DX: J44.9 Chronic obstructive pulmonary disease, unspecified (principal); J30.9 Allergic rhinitis, unspecified
CPT/HCPCS: 99214

== ENCOUNTER → 2023-03-24 13:52 | Outpatient (BNVA) | payer OTHER, SELFPAY | PROVIDERS: Visit Provider Hospitalist | DX: J47.9 Bronchiectasis, uncomplicated (principal) | CPT/HCPCS: 99212 ==

== ENCOUNTER 2023-05-08 09:32 | Outpatient (REF) | payer OTHER, SELFPAY | END 2023-05-08 09:33 | disposition home or self-care (01) | LOC: HO.HHCL 09:32 | PROVIDERS: Visit Provider Internal Medicine Geriatric Medicine | DX: I10 Essential (primary) hypertension (principal) | CPT/HCPCS: 36415; 80048 ==

== ENCOUNTER 2023-07-12 11:39 | Outpatient (REF) | payer OTHER, SELFPAY ==
[2023-07-12 13:56] LABS: Anion Gap 14 (12-20); Blood Urea Nitrogen 19 mg/dL (9-16); Calcium 9.6 mg/dL (8.4-10.2); Carbon Dioxide 27 mmol/L (22-29); Chloride 102 mmol/L (96-108); Estimated Glomerular Filt Rate > 60; Glucose Random 75 mg/dL (60-115); Potassium 4.2 mmol/L (3.3-5.1); Sodium 139 mmol/L (135-145)
== END 2023-07-12 11:40 | disposition home or self-care (01) ==
LOC: HO.HHCL 11:39
PROVIDERS: Visit Provider Internal Medicine Geriatric Medicine
DX: I10 Essential (primary) hypertension (principal)
CPT/HCPCS: 36415; 80048

== ENCOUNTER 2023-07-17 00:16 | Emergency (ER) | payer OTHER, SELFPAY ==
--- NOTE | 2023-07-17 | ECG_ITS ---
Test Reason : HIGH BP Blood Pressure : / mmHG Vent. Rate : 071 BPM Atrial Rate : 071 BPM P-R Int : 234 ms QRS Dur : 146 ms QT Int : 474 ms P-R-T Axes : -12 047 019 degrees QTc Int : 515 ms Sinus rhythm with 1st degree A-V block Right bundle branch block Abnormal ECG When compared with ECG of 18-FEB-2023 18:41, Vent. rate has decreased BY 35 BPM QT has lengthened Referred By: Generic ED Physician Electronically Signed By:Corey Swann
[2023-07-17 00:33] VITALS: BP 154/93; PULSE 74; RESP 24; O2SAT 97
[2023-07-17 00:41] VITALS: BP 162/64; PULSE 82; O2SAT 96
[2023-07-17 00:43] VITALS: BP 154/93; PULSE 74; RESP 24; O2SAT 97; BMI 29.4
[2023-07-17 02:36] VITALS: BP 146/92; PULSE 74; RESP 24; O2SAT 96
--- NOTE | 2023-07-17 04:26 | ED_ITS ---
HPI - General Adult General Chief complaint: General Medical Stated complaint: HTN Fatigue Time Seen by Provider: 07/17/23 04:26 Source: patient Mode of arrival: ambulatory Limitations: no limitations History of Present Illness ED Provider: Dr. Garrick Troncoso HPI narrative: 82-year-old female with a history of hypertension, asthma, COPD who presents emergency department for evaluation of elevated blood pressure, nausea and dizziness. Patient states she was not feeling well yesterday and had nausea with dizziness. She is vague in describing the symptoms. She states she checked her blood pressure and her systolic blood pressures were in the 170 range and they normally run in the 140-150 range. She states that she was also having back pain which she states is chronic. She denied fever, chills, chest pain, shortness of breath, dyspnea on exertion, nausea, vomiting , diarrhea, dark stools or bloody stools. Patient states she takes 3 blood pressure medications to control her blood pressure she has been compliant with these medications. Related Data Home Medications ?Medication ?Instructions ?Recorded ?Confirmed diltiazem HCl 360 mg capsule,24 360 mg PO DAILY 12/17/19 01/17/23 hr,extended release (Taztia XT) celecoxib 200 mg capsule 200 mg PO DAILY PRN Pain 02/27/20 01/17/23 pantoprazole 20 mg tablet,delayed 20 mg PO DAILY 06/18/20 01/17/23 release ferrous sulfate 325 mg (65 mg 65 mg PO DAILY 11/19/20 01/17/23 iron) tablet (FeroSul) nitroglycerin 0.4 % (w/w) rectal MI BEDTIME 06/14/21 03/07/22 ointment (Rectiv) amlodipine 10 mg tablet 10 mg PO DAILY 12/23/21 03/07/22 hydrochlorothiazide 25 mg tablet 25 mg PO QAM 03/07/22 01/17/23 losartan 100 mg tablet 100 mg PO DAILY 03/07/22 03/07/22 Oxygen Home Use 04/25/22 nebulizers 04/25/22 lorazepam 0.5 mg tablet 0.5 mg PO BID PRN Anxiety 10/31/22 01/17/23 olmesartan 40 mg tablet 40 mg PO DAILY 10/31/22 01/17/23 furosemide 20 mg tablet 20 mg PO QAM 01/18/23 01/18/23 aspirin 81 mg tablet,delayed 81 mg PO DAILY 03/24/23 release Previous Rx's ?Medication ?Instructions ?Recorded ibuprofen 600 mg tablet 600 mg PO TID PRN pain #14 tabs 10/14/20 albuterol sulfate 2.5 mg/3 mL 2.5 mg (3 mL) inhalation Q4H PRN 02/15/22 (0.083 %) solution for nebulization for wheezing #75 mL Breo Ellipta 200 mcg-25 mcg/dose 1 ea inhalation DAILY #60 ea 06/07/22 powder for inhalation (fluticasone furoate-vilanterol) Ventolin HFA 90 mcg/actuation 2 puff PO QID PRN for wheezing #18 06/08/22 aerosol inhaler (albuterol sulfate) grams trazodone 50 mg tablet 50 mg PO BEDTIME #30 tabs 09/01/22 oxymetazoline 0.05 % nasal spray 2 spray intranasal Q12H PRN nasal 02/18/23 (Afrin (oxymetazoline)) congestion 3 days #22 mL prednisone 20 mg tablet 20 mg PO BID #10 tabs 02/18/23 fluticasone fur. 200 mcg-umeclid 1 inh inhalation DAILY 30 days #60 03/24/23 62.5 mcg-vilant 25 mcg ea inhalat.powder (Trelegy Ellipta) doxycycline hyclate 100 mg capsule 100 mg PO BID 10 days #20 caps 04/04/23 azithromycin 500 mg tablet 500 mg PO DAILY 5 days #5 tabs 05/23/23 prednisone 20 mg tablet See Rx Instructions PO DAILY 10 05/23/23 days #15 tabs Allergies Allergy/AdvReac Type Severity Reaction Status Date / Time amoxicillin [Augmentin] Allergy Severe Rash and Verified 07/17/23 00:46 Hives atorvastatin Allergy Severe Tachycardia Verified 07/17/23 00:46 clavulanic acid [Augmentin] Allergy Severe Rash and Verified 07/17/23 00:46 Hives nitrofurantoin [Macrobid] Allergy Severe Rash and Verified 07/17/23 00:46 Hives pravastatin Allergy Severe Rash and Verified 07/17/23 00:46 Hives lactose [LACTOSE] Allergy Mild DIARRHEA Verified 07/17/23 00:46 pollen Allergy Mild Rash Uncoded 07/17/23 00:46 Review of Systems Review of Systems: Yes all other systems are reviewed and are negative [facility] Past Medical History [facility] Narrative: Social history: She denies tobacco, alcohol and drug use. Medical History COVID-19 RBBB (right bundle branch block) HTN (hypertension) Acid reflux Nocturnal hypoxia Chronic allergic rhinitis Asthma-COPD overlap syndrome Bronchiectasis Asthma Chronic obstructive pulmonary disease Renal artery atherosclerosis Venous insufficiency Surgical History H/O colonoscopy Hx of breast biopsy Hx of hysterectomy Hx of appendectomy Hx of cholecystectomy Social History Social History Housing Other:: senior housing Are you a primary care team assistant to a significant other at home: No Do you presently have visiting nurse or other home services: Yes ([employer]) Alcohol intake: never Patient Tobacco Use Status: Never used Tobacco Advance Directives: Yes Advance Directives on File: Yes Advance Directives Date on File: 12/30/21 Physical Exam ED Vital Signs: Vital Signs - 24 hr 07/17/23 00:33 07/17/23 00:43 07/17/23 02:36 Pulse Rate 74 74 74 Respiratory Rate 24 H 24 H 24 H Blood Pressure 154/93 H 154/93 H 146/92 H Pulse Oximetry 97 97 96 Oxygen Delivery Method Room Air Room Air Room Air BMI result Body Mass Index 29.4 Vital signs revealed elevated respiratory rate of 24 and elevated systolic blood pressures ranging from 146-150 for an elevated systolic blood pressures in the 90 range. Exam: General: Awake, alert in no distress Head: Normocephalic, atraumatic EENT: PERRL, Lids normal, sclera normal, conjunctiva normal, nose normal , ears normal, throat without erythema or exudates Neck: Supple, no adenopathy Lung: breath sounds symmetric, no wheezing, rales or rhonchi Chest: symmetric movement, nontender Heart: regular rate and rhythm, normal S1, S2 no murmurs or rubs Abdomen: soft, non-tender, nondistended, normal bowel sounds Back: no vertebral tenderness, no CVAT Extremities: no deformities, moves all extremities symmetrically Neuro: Awake, alert, oriented, normal speech, cranial nerves intact, moves all extremities symmetrically Psych: Pleasant, cooperative Medical Decision Making Medical Decision Making MDM Narrative: 82-year-old female with a history of hypertension, asthma, COPD who presents emergency department for evaluation of elevated blood pressure, nausea and dizziness. Patient states that her systolic blood pressures usually run in the 140-150 range in her blood pressures were in the 170 range. Vital signs did reveal elevated systolic blood pressures in the 150 range is with elevated systolics in the 90 range is while she was here in the emergency department. Physical examination was otherwise unremarkable. Differential diagnosis: ?Hypertension, anxiety Course: Patient's 12 EKG was unremarkable pain Patient's physical examination was unremarkable as well. At this time believe that the patient's symptoms are consistent with her essential hypertension. I did discuss this with the patient. The patient was discharged home. She was given printed and verbal instructions on hypertension. Admission/Observation Consideration of admission/observation: Escalation of care including admission/observation considered Independent Interpretation I performed an independent interpretation of an: EKG Interpretation: 04:29: My independent interpretation patient's 12 EKG done at 01:31 hours is as follows: Sinus rhythm with a rate of 71, prolonged MI interval of 234 milliseconds, prolonged QRS of 146 milliseconds, prolonged QTC interval of 515 milliseconds, right bundle-branch block, no ST segment elevation, no ST segment depression, no PACs, no PVCs Chronic Conditions Patient?s care impacted by: Hypertension Discharge Plan Discharge Clinical Impression: Essential (primary) hypertension, Dizziness Patient Disposition: Home, Self-Care Additional Instructions: You had a complete blood count, comprehensive metabolic panel, and EKG. These tests were all normal which is reassuring. High blood pressure instructions: The reason to check your blood pressure at home is to give your doctor an idea of what your blood pressure does when you are not in the doctor's office. Take your blood pressure in the mornings, Mondays , Wednesdays and Fridays and then write down these readings to discuss them with your doctor at your next visit. Do this for 2 weeks. If your doctor thinks that your blood pressures are too high then they will either increase your high blood pressure medication or start you on a 2nd high blood pressure medication. If your doctor changes your blood pressure medications it will take anywhere fro m 2-6 week before these medications work to reduce your blood pressure. Follow-up with your doctor to discuss your blood pressure readings in 2 weeks Please return to the emergency department if your symptoms get worse or if you develop any new symptoms that are concerning to you. Prescriptions: No Action albuterol sulfate 2.5 mg /3 mL (0.083 %) solution for nebulization 2.5 mg inhalation Q4H PRN (Reason: for wheezing) Qty: 75 11RF Breo Ellipta 200-25 mcg/dose blister with device 1 ea inhalation DAILY Qty: 60 11RF albuterol sulfate [Ventolin HFA] 90 mcg/actuation HFA aerosol inhaler 2 puff PO QID PRN (Reason: for wheezing) Qty: 18 11RF trazodone 50 mg tablet 50 mg PO BEDTIME Qty: 30 11RF doxycycline hyclate 100 mg capsule 100 mg PO BID 10 Days Qty: 20 0RF prednisone 20 mg tablet See Rx Instructions PO DAILY 10 Days Qty: 15 0RF Rx Instructions: PO daily; Take 2 tabs daily x 5 days, then 1 tablet daily x 5 days azithromycin 500 mg tablet 500 mg PO DAILY 5 Days Qty: 5 0RF ibuprofen 600 mg tablet 600 mg PO TID PRN (Reason: pain) Qty: 14 0RF losartan 100 mg tablet 100 mg PO DAILY oxymetazoline [Afrin (oxymetazoline)] 0.05 % spray,non-aerosol 2 spray intranasal Q12H PRN (Reason: nasal congestion) 3 Days Qty: 22 0RF prednisone 20 mg tablet 20 mg PO BID Qty: 10 0RF furosemide 20 mg tablet 20 mg PO QAM celecoxib 200 mg capsule 200 mg PO DAILY PRN (Reason: Pain) diltiazem HCl [Taztia XT] 360 mg capsule,extended release 24 hr 360 mg PO DAILY pantoprazole 20 mg tablet,delayed release (DR/EC) 20 mg PO DAILY ferrous sulfate [FeroSul] 325 mg (65 mg iron) tablet 65 mg PO DAILY Rectiv 0.4 % (w/w) ointment MI BEDTIME amlodipine 10 mg tablet 10 mg PO DAILY (DME[place] [facility] [place] .[place]TE Rx Instructions: As directed (DME) Oxygen Home Use Kit See Rx Instructions .ROUTE Rx Instructions: As directed hydrochlorothiazide 25 mg tablet 25 mg PO QAM olmesartan 40 mg tablet 40 mg PO DAILY lorazepam 0.5 mg tablet 0.5 mg PO BID PRN (Reason: Anxiety) aspirin 81 mg tablet,delayed release (DR/EC) 81 mg PO DAILY Trelegy Ellipta 200-62.5-25 mcg blister with device 1 inh inhalation DAILY 30 Days Qty: 60 12RF Print Language: Syrian
[2023-07-17 05:18] VITALS: BP 150/60; PULSE 68; RESP 14; TEMP 36.7; O2SAT 95
== END 2023-07-17 05:21 | disposition home or self-care (01) ==
PROVIDERS: Emergency Provider Emergency Medicine Emergency Medical Services; PCP Internal Medicine Geriatric Medicine
DX: R42 Dizziness and giddiness (principal); I10 Essential (primary) hypertension; J44.9 Chronic obstructive pulmonary disease, unspecified
CPT/HCPCS: 93005; 99283; 99284

== ENCOUNTER → 2023-07-17 01:31 | Outpatient (BNV) | payer OTHER, SELFPAY | PROVIDERS: Emergency Provider Emergency Medicine Emergency Medical Services; PCP Internal Medicine Geriatric Medicine; Visit Provider Internal Medicine Cardiovascular Disease | DX: R94.31 Abnormal electrocardiogram [ECG] [EKG] (principal) | CPT/HCPCS: 93010 ==

== ENCOUNTER 2023-11-30 09:33 | Outpatient (AMB) | payer OTHER, SELFPAY ==
--- NOTE | 2023-11-30 09:47 | MHC.OFFVIS ---
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 Allergies amoxicillin [Augmentin] Allergy (Severe, Verified 11/30/23 09:51) Rash and Hives atorvastatin Allergy (Severe, Verified 11/30/23 09:51) Tachycardia clavulanic acid [Augmentin] Allergy (Severe, Verified 11/30/23 09:51) Rash and Hives nitrofurantoin [Macrobid] Allergy (Severe, Verified 11/30/23 09:51) Rash and Hives pravastatin Allergy (Severe, Verified 11/30/23 09:51) Rash and Hives lactose [LACTOSE] Allergy (Mild, Verified 11/30/23 09:51) DIARRHEA pollen Allergy (Mild, Uncoded 11/30/23 09:51) Rash HPI Comments Details: The patient is an 83 year old woman with a history of COPD, ELISABET did not tolerate PAP therapy, in addition to bronchiectatis with known history of pseudomonal infections and non tuberculosis mycobacterium. She describes worsening dyspnea on exertion. Moderate in severity. Sometimes when she is on the phone or even eating she gets short of breath. She has also been coughing which has been usually nonproductive. She has been using long respiratory therapy without any significant improvement. She also describes left-sided chest discomfort. At this point she does not have it. The discomfort usually radiates to the back. She has not had a cardiac workup in a while. She had an EKG from 2014 from [facility] that I was able to review with some conduction abnormalities. She also underwent a bronchoscopy back in August of 2017 with cultures positive for Pseudomonas. At this point would consider treating night to see if she has any improvement of her symptoms. We had to pulmonary function studies and her FEV1 was only 1.4 L. will fill out her placard for for handicapped parking. Otherwise the patient is without any other complaints period . We did review the use of the flutter valve. 11/15/2019 The patient is here for pulmonary follow-up visit. Overall she is doing a lot better when compared to her last visit. She required high doses of prednisone and also antibiotics. Her cough is better her wheezing is improved. She still has a barky cough due to some degree of tracheomalacia. She continues to very aggressive respiratory regimen. Her symptoms are still present. At this point will do allergy testing to see if she has a candidate for any biologic therapy. She did have elevated eosinophilia and maybe respond well to Biologic therapy. But first we will optimize her respiratory therapy. 02/26/2019 the patient is here for pulmonary follow-up visit. Overall the patient is doing very well with the medication changes. She required prednisone. She is not requiring her nebulizer. She is responding very well to the to the trelegy inhaler. She continues to have good response to the Daliresp. Clear to keep her on the lower dose. We had increased her azithromycin to the 500 mg she seems to be tolerating that well. She needs to have serial EKGs to make sure that he maintains within normal limits. 06/18/2020 The patient is here for a follow up visit. Overall doing well. She has a cough, mild to moderate in severity. Complaining of dyspnea on exertion, mild in severity. Her PFTs do demonstrate COPD. She has been responding well to the current respiratory therapy. The patient is interested in participating in pulmonary rehabilitation. 06/29/2020 the patient is here for sick visit. She started developing worsening shortness of breath and chest tightness the last couple days. She has been getting worse. Denies any fevers or chills. She does have a cough. Denies any exposure to anybody with COVID-19. In the meantime she has been using her nebulizer every 3-4 hours with some partial improvement of her symptoms. In the office she was having some coughing and increasing wheezing. Therefore she was given a nebulized therapy and she was also given Solu-Medrol. The patient's pulse ox was reassuring. Will have her get some blood work before she goes home. If the patient is condition does not respond to the outpatient therapy the patient needs to go to the ER seek further medical advice. 11/19/2020 the patient is here for a pulmonary follow-up visit. Overall she is feeling better from a respiratory status. She did require prednisone and antibiotics during the last evaluation back in June. More recently than that she did have a fall while she was in her home and she complaint of significant pain at the level of the coccyx. She was evaluated in the ED which she was found to have a small fracture. Currently she is feeling a lot better. Denies any significant discomfort. She continues with respiratory therapy. Denies any significant cough or wheezing. She does have her baseline shortness of breath with activity which is [id number] severity. At this point will continue with current respiratory regimen. also to note she stop the Trelegy inhaler and she has been on the Breo and appears to be better for her she is tolerating it well. 04/13/2021 the patient is here for sick visit. Apparently she has been getting worsening shortness of breath now for the last 2-3 days. She feels like she has a hard time taking a breath in due to discomfort primarily on the left side of the chest area. Has been very winded with minimal activity. Has been also coughing more. She has been using her nebulizer more often. She did receive the COVID vaccines in addition to the booster. However, she did not test for COVID-19. Will make sure with test her today. In the meantime on examination she does not have significant wheezing or rhonchi. She did give herself a treatment prior to her arrival. She also has been somewhat tremulous. We did take a briefly for a walking test and she maintain a pulse ox of 98% with activity which is reassuring. She does not have any chest discomfort at this time. However, she does look fatigued and sickly appearing therefore I am concerned about the patient. I will have her get an x-ray in addition to blood work And her COVID-19 antigen testing. 06/14/2021 the patient is here for a pulmonary follow-up visit. She did recover from her last illness. She was tested for COVID which was negative. The patient continues to take all the precautions necessary. She responded well to the Daliresp therapy. She was able to also lose weight which is been Reassuring. She continues to have a hard time sleeping at nighttime. She does not use any sleep aids. She does wake up tired. She have daytime drowsiness and headaches in the morning. The patient may benefit from oxygen supplementation at nighttime. Will go ahead and perform an overnight oximetry at this time. In the meantime she is willing to try trazodone to see if she can have better sleep hygiene. She will continue with current respiratory regimen at this time. 12/23/2021 the patient is here for pulmonary follow-up visit. Overall she is doing very well from a respiratory status. Denies any significant cough or chest congestion. Recently, however, the patient developed severe headaches and she had elevated blood pressures. she was taken to the [facility] ED which she was evaluated for hypertensive urgency. that ER visit she had blood work which was reassuring. The ED demonstrated a 1st degree AV block in addition to a right bundle branch block. The patient also had a QTC that was 516. the patient has a very abnormal EKG when therefore needs to see Cardiology. Since most of the records are already. Will go ahead and refer her to 1 of our cardiologists. Meantime she has been on azithromycin 3 times a week. In view of the elevated QTC and the conduction abnormalities will go ahead and stop that medication at this time. She will continue with the rest of the medications. She is going to monitor her respiratory symptoms while coming off the macrolide suppression therapy. In addition to that the patient has been noticing some weight loss. I will make sure that she has an x-ray on record. 04/25/2022 the patient is here for a pulmonary follow-up visit. The patient has been better from a respiratory status. She continues on the Breo. She stop the Daliresp. She was having significant amount of weight loss and also her insurance would not cover any longer. Her major issue is significant blood pressure issues. She did go to the ER with hypertensive urgency. The patient also was given additional blood pressure medications. Now she is having significant lower extremity edema likely from the CT scan gentle mando. She will be seen her primary care doctor tomorrow. The patient also was seen by Cardiology in awaiting a cardiac evaluation. She did have an abnormal EKG during the last visit. Her QTC was prolonged therefore the patient is no longer on macrolide therapy. Clinically the patient is doing well she does not need that therapy at this time which is reassuring. We did review her last chest x-ray that was back in January 2022 with some degree of atelectasis but otherwise her lungs appear to be clear. 10/31/2022 the patient is here for pulmonary follow-up visit. The patient has been noticing worsening dyspnea on exertion for the last few days. She states that is primarily because she has not been able to use a nebulizer. She has nebulizer supplies but they are more than 3-month-old she was concerned about using it. I did reassure them that is when she washes in well which she does she can using for longer period time. In the meantime she can call the [facility] in request for refills. The patient has been using her inhalers with good effect. She did have an echocardiogram from the heart demonstrating normal ejection fraction although she does have what appears to be some diastolic dysfunction. Otherwise patient is doing well. She will get a Prevnar 20 vaccine today. She also consider getting the RSV in the flu shot when available. 03/24/2023 the patient is here for a pulmonary follow-up visit. She continues to have dyspnea on exertion. Also complaining of chest tightness and wheezing intermittently. moderate in severity. Typically using her rescue inhaler 2 to 3 times a week. The patient has been on Breo. Will go ahead and optimize respiratory therapy switching over to Trelegy. She continues use her oxygen at nighttime. She has been on 2 L at night with good response. The therapy has been affecting beneficial. We did review her last chest x-ray from January 2023 demonstrating just hyperinflated lungs consistent with COPD. In addition to that the patient also had a lower extremity Doppler ruling out DVT. Though she was treated for cellulitis.. At this point will maximize her respiratory therapy follow-up in 6 months. 11/30/2023 the patient is here for a pulmonary follow-up visit. The patient overall has been doing okay. Apparently, she is relocated to [place] in the coming weeks. She started developing cough the last few weeks. Croupy in nature. Moderate severity. Denies any fevers or chills. Denies any significant chest tightness or wheezing. She has been using her inhalers with good adherence. She also finds the oxygen therapy at nighttime is very effective for her. She still has her old CPAP machine which is basically on touch. She does not have any supplies. I did recommend she take with her specially when she moves to [place] in case that she wants to re-attempt again. For now though she is going to have to discontinue the oxygen at this time and when she gets situated with her specialists in [place] she can be evaluated again for her sleep apnea and her nocturnal hypoxia. Again, she tried and failed CPAP in the past but would be reasonable to consider re-evaluating altogether. The patient does respond well to her current respiratory therapy. I do not hear any wheezing on examination which is reassuring. Will treat her for about her bronchitis. [facility] Medical History (Updated 11/30/23 @ 16:03 by Walt Haywood MD) ELISABET (obstructive sleep apnea) COVID-19 RBBB (right bundle branch block) HTN (hypertension) Acid reflux Nocturnal hypoxia Chronic allergic rhinitis Asthma-COPD overlap syndrome Bronchiectasis Asthma Chronic obstructive pulmonary disease Renal artery atherosclerosis Venous insufficiency Surgical History H/O colonoscopy Hx of breast biopsy Hx of hysterectomy Hx of appendectomy Hx of cholecystectomy Social History Housing Other:: senior housing Are you a primary healthcare analyst to a significant other at home: No Do you presently have 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) Alcohol intake: never Patient Tobacco Use Status: Never used Tobacco Advance Directives Date on File: 12/30/21 Review of Systems Const Denies fever(s), Denies night sweats and Reports weight loss ENT Denies change in voice, Denies lip swelling, Denies mouth pain, Reports nasal congestion, Reports nasal discharge and Denies tongue swelling Card Denies chest pain, Reports leg edema, Denies dyspnea and Reports dyspnea on exertion Resp Reports chest congestion, Reports cough, Denies excessive phlegm production, Denies pain on inspiration, Denies pain with cough, Denies dyspnea, Reports dyspnea on exertion and Denies wheezing GI Denies abdominal pain Musc Denies no additional complaints Neuro Denies Neuro-related abnormal movements Psych Denies no additional complaints Skyler/Lymph Denies easy bleeding and Denies lymphadenopathy Aller/Immun Denies lip swelling, Denies tongue swelling and Denies wheezing Physical Exam Vital Signs: Last Vital Signs Pulse 65 11/30/23 09:48 BP 142/60 H 11/30/23 09:48 Pulse Ox 94 11/30/23 09:48 Oxygen Delivery Method Room Air 11/30/23 09:48 BMI result Body Mass Index 27.4 Const General: comfortable and alert Neck Neck: Yes normal visual inspection, Yes full ROM and Yes no lymphadenopathy Chest Chest palpation & inspection: normal inspection of the chest Resp Effort & Inspection: normal respiratory effort Auscultation: no crackles, no rales, no wheezes and diminished lung sounds Cardio Rate: regular rate Rhythm: regular rhythm Heart sounds: S1 normal heart sound present and S2 normal heart sound present GI Palpation (GI): Soft to palpation and nontender Auscultation: normal bowel sounds Skin General skin exam: rashes and/or lesions noted Extrem General: No clubbing, No cyanosis and Yes edema Results Reviewed Results Reviewed: [address] [address] XRay Report Signed Patient: Leeanna Thornton MR#: [id number] : 1940 Acct:[id number] Age/Sex: 82 / F ADM Date: 02/18/23 Loc: HO.ED Attending Dr: Ordering Physician: Tj Napoles MD Date of Service: 02/18/23 Procedure(s): XR chest 1V Accession Number(s): [id number] cc: Tj Napoles MD; Name,Rohit TRINIDAD~ EXAMINATION: PORTABLE CHEST 1 VIEW CLINICAL INFORMATION: SOB, dyspnea. COMPARISON: 02/07/2022. TECHNIQUE: Portable frontal view of the chest was obtained. FINDINGS: The lungs are hyperinflated with chronic appearing changes at the lung bases likely due to scarring or atelectasis. No focal infiltrate, effusion, edema, or pneumothorax. Cardiac and mediastinal silhouettes are within normal limits for technique. No acute bony abnormality seen. XR/XR chest 1V IMPRESSION: Hyperinflated with chronic appearing changes but no acute superimposed airspace disease. 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 Assessment & Plan Assessment & Plan (1) Asthma-COPD overlap syndrome: Code(s): J44.9 - Chronic obstructive pulmonary disease, unspecified Category: Medical (2) Chronic allergic rhinitis: Code(s): J30.9 - Allergic rhinitis, unspecified Category: Medical (3) Bronchiectasis: Code(s): J47.9 - Bronchiectasis, uncomplicated Category: Medical Qualifiers: Bronchiectasis type: uncomplicated Qualified Code(s): J47.9 - Bronchiectasis, uncomplicated (4) ELISABET (obstructive sleep apnea): Code(s): G47.33 - Obstructive sleep apnea (adult) (pediatric) Category: Medical Plan continue Trelegy 200 daily Doxycycline x 14 days GRETCHEN as needed OTC Mucinex continue trazodone for sleep, 1 tablet Oxygen 2L at night, will need to return it and be retested in [place] Medications: New doxycycline monohydrate 100 mg PO BID 14 days 28 tabs 0RF Coding Level of Care Code Est Pt Level 4 (88413) Complex EM visit Add On G2211 Diagnoses Asthma-COPD overlap syndrome J44.9 Chronic allergic rhinitis J30.9 Bronchiectasis without complication J47.9 Bronchiectasis type: uncomplicated ELISABET (obstructive sleep apnea) G47.33 Time Spent (min) 17
[2023-11-30 09:48] VITALS: BP 142/60; PULSE 65; O2SAT 94; BMI 27.4
== END 2023-11-30 10:22 | disposition home or self-care (01) ==
PROVIDERS: PCP Internal Medicine Geriatric Medicine; Visit Provider Hospitalist
DX: J44.9 Chronic obstructive pulmonary disease, unspecified (principal); J30.9 Allergic rhinitis, unspecified; J47.9 Bronchiectasis, uncomplicated; G47.33 Obstructive sleep apnea (adult) (pediatric)
CPT/HCPCS: 99214; G2211

== ENCOUNTER → 2023-11-30 09:33 | Outpatient (BNVA) | payer OTHER, SELFPAY | PROVIDERS: PCP Internal Medicine Geriatric Medicine; Visit Provider Hospitalist | DX: J47.9 Bronchiectasis, uncomplicated (principal); J30.9 Allergic rhinitis, unspecified; G47.33 Obstructive sleep apnea (adult) (pediatric); Z99.89 Dependence on other enabling machines and devices; Z99.81 Dependence on supplemental oxygen | CPT/HCPCS: 99212 ==